=== PATIENT | male | born 1960 | race Caucasian/White ===

== ENCOUNTER 2022-07-27 06:54 | Observation (INO) ==
--- NOTE | 2022-06-21 10:28 | PAT Medication Instructions ---
Medication Instructions Date of Service June 21, 2022 Home Medications ascorbic acid (vitamin C) 500 mg tablet (Vitamin C) 500 mg PO QAM diclofenac sodium 1 tab PO BID garlic 1 dose PO QAM lisinopril 20 mg tablet 20 mg PO QAM multivitamin 1 tab PO QAM omega-3 fatty acids 1,000 mg PO QAM vitamin B complex 1 tab PO QAM ASK your surgeon for instructions diclofenac sodium 1 tab PO BID STOP taking 2 weeks before surgery (or as soon as possible if surgery is within 2 weeks) garlic 1 dose PO QAM omega-3 fatty acids 1,000 mg PO QAM DO NOT take the morning of surgery ascorbic acid (vitamin C) 500 mg tablet (Vitamin C) 500 mg PO QAM lisinopril 20 mg tablet 20 mg PO QAM multivitamin 1 tab PO QAM vitamin B complex 1 tab PO QAM Other Notes If you have any questions please call us at [phone] or [phone] or [phone] or [phone]
--- NOTE | 2022-06-23 15:11 | Anesthesiology Consultation ---
Date of Service June 23, 2022 Assessment & Plan (1) Encounter for pre-operative examination: - Outpatient joint assessment: Patient is currently scheduled for inpatient pathway. Case discussed with Dr. Rodriguez, if re-evaluated pending system levels during current pandemic/surgeon requests outpatient pathway, patient is acceptable candidate for outpatient joint program from anesthesia standpoint pending surgeon's office assessment of pt motivation/support/completion of same day joint program preop requirements. Chart Review Chart Review: Acceptable Risk for Surgery and Patient seen in Pre Admission Testing Teaching & Discussion Pre-Anesthesia Teaching/Discussion Notes: Instructed NPO after midnight before surgery, except medications with 15 cc of water. Medication instructions provided according to the PAT guidelines. History Surgery Operation Date: 07/27/22 09:35 Proposed Procedures p Left Total Knee Arthroplasty - Rashi Cifuentes MD Height/Weight Height: 6 ft Weight: 133.81 kg Allergies Allergy/AdvReac Type Severity Reaction Status Date / Time No Known Allergies Allergy Unknown Verified 06/20/22 16:03 Medications Home Medications Medication Instructions Recorded Confirmed Last Taken ascorbic acid (vitamin C) 500 mg 500 mg PO QAM 06/20/22 06/20/22 Unknown tablet (Vitamin C) diclofenac sodium 1 tab PO BID 06/20/22 06/20/22 Unknown garlic 1 dose PO QAM 06/20/22 06/20/22 Unknown lisinopril 20 mg tablet 20 mg PO QAM 06/20/22 06/20/22 Unknown multivitamin 1 tab PO QAM 06/20/22 06/20/22 Unknown omega-3 fatty acids 1,000 mg PO QAM 06/20/22 06/20/22 Unknown vitamin B complex 1 tab PO QAM 06/20/22 06/20/22 Unknown Past Medical History Medical History (Updated 06/23/22 @ 15:19 by Monique De La Cruz PA-C) GERD (gastroesophageal reflux disease) controlled, stable per pt Glaucoma Hyperlipidemia Hypertension controlled, stable per pt Hepatitis listed in [facility], pt denies, states was required to have vaccination work, reports no h/o hepatitis. Patient denies h/o stroke, seizures, heart attack, heart failure, DM, blood clots or blood transfusions. Exercise / Class Metabolic Activity II 4-5 Yardwork/Stairs/Walk up hill (denies CP or SOB with 1 FOS) Past Family History Family History Other No family history of adverse response to anesthesia Past Surgical History Surgical History History of arthroscopy of left knee History of colonoscopy History of umbilical hernia repair History of wisdom tooth extraction S/P trigger finger release Past Anesthesia History No Hx of Anesthesia Complications and No Family Hx of Anesthesia Complications History of PONV No Hx of PONV and No Hx of Motion Sickness Social History Smoking Status: Never smoker Do You Dip or Chew Tobacco: No (quit 13 years ago) Hx Alcohol Use: Yes Alcohol type: beer alcohol intake frequency: a few times a week Hx Substance Use: No substance use type: does not use Review of Systems Snoring, denies witnessed apneas. Patient denies chest pain, shortness of breath, dyspnea on exertion, fever, chills, cough, wheezing, or palpitations. Physical Exam Vital Signs Vitals BP 126/82 P 80 TEMP 98.2 SP02 95% on RA RESP 18 Physical Full cervical extension range of motion without pain TMD 3.5 finger breadths Mallampati Score 2 Dentition: intact, several caps; denies chipped or loose teeth, crowns, implants or bridges Lungs: normal respiratory effort. Clear throughout to auscultation, no adventitious breath sounds Cardiac: regular rate and rhythm, no murmurs noted Carotid arteries: negative bruit bilat Lab Results Anesthesia Preop Results Results Anesthesia Widget: WBC 8.02 K/ul (4.8-10.8) 06/23/22 Hgb 13.7 g/dl (14.0-18.0) L 06/23/22 Hct 39.9 % (40.1-51.0) L 06/23/22 Plt 233 K/uL (130-400) 06/23/22 Na 138 mmol/L (136-145) 06/23/22 K 3.7 mmol/L (3.5-5.1) 06/23/22 Cl 104 mmol/L (98-107) 06/23/22 CO2 27 mmol/L (21-32) 06/23/22 BUN 18 mg/dl (6-23) 06/23/22 Creat 0.89 mg/dl (0.6-1.4) 06/23/22 Glucose Level 106 mg/dl (70-99(Fasting)) H 06/23/22 PT 10.7 Seconds (9.0-12.0) 06/23/22 PTT 28.2 Seconds (21.0-31.0) 06/23/22 INR 1.0 (0.9-1.1) 06/23/22 HA1c 5.8 % (4.5-5.6) H 06/23/22 Urine Color Yellow 06/24/22 Urine Appearance Clear (Clear) 06/24/22 Urine pH 5.0 (4.5-7.5) 06/24/22 Urine Specific [place] 1.016 (1.000-1.030) 06/24/22 Urine Protein Negative (Negative) 06/24/22 Urine Glucose (UA) Negative (Negative) 06/24/22 Urine Ketones Negative (Negative) 06/24/22 Urine Blood Negative (Negative) 06/24/22 Urine Nitrite Negative (Negative) 06/24/22 Urine Bilirubin Negative (Negative) 06/24/22 Urine Urobilinogen Negative (Negative) 06/24/22 Urine Leukocyte Esterase Negative (Negative) 06/24/22 Blood Type A Negative 06/23/22 Antibody Screen NEGATIVE 06/23/22 Testing Electrocardiogram Date: 06/23/22 NSR, rate 71 bpm Incomplete RBBB Chest X-Ray Date: 06/23/22 No prior studies are available for comparison at the time of dictation. The cardiomediastinal silhouette is top normal for projection. The lungs and pleural spaces are clear. There is no pneumothorax. The bony thorax appears intact. IMPRESSION: No active disease in the chest. COVID-19 Risk Screen Screening Information COVID-19 Screen Date: 06/23/22 Exposure 21 Days Family/Household +COVID Last 21 Days: No Exposure 10 Days Any COVID Exposure Last 10 Days: No Symptoms Last 10 Days Experienced COVID Sx Last 10 Days: No + COVID 0-90 Days COVID + in Last 0-90 Days: No
--- NOTE | 2022-07-26 19:30 | History & Physical Report ---
Date of Service July 26, 2022 Assessment & Plan (1) Primary osteoarthritis of left knee: Plan: Treatment options discussed with the patient. He has failed conservative measures. He would like to proceed with surgical invention. Risks, benefits and alternatives to surgery including but not limited to infection, DVT, pain, stiffness, need for revision surgery, damage to blood vessels, damage to nerves, PE, , were discussed with the patient and they wish to proceed. Plan for left total knee arthroplasty scheduled for [facility] on July [address] Cifuentes. Plan for home health physical therapy. Plan on aspirin 81 mg twice daily for 1 month postop for DVT prophylaxis. Questions answered. Patient will follow up postop. History of Present Illness Chief Complaint: Left knee pain Primary Care Provider: Israel Bahena PA-C 62-year-old male with past medical history significant for hypertension, high cholesterol, BRAYDON who presents with ongoing left knee pain. Pain interfering with his daily activities. He has failed conservative measures. He like to proceed with surgical invention patient denies headaches, sweats, fevers, chills, double vision, blurred vision, cough, sore throat, dysphagia, chest pain, sob, wheezing, n/v/d/c, numbness, tingling, fatigue, urinary symptoms, mood disorders. ROS positive for left knee pain and stiffness. Allergies Allergy/AdvReac Type Severity Reaction Status Date / Time No Known Allergies Allergy Unknown Verified 06/20/22 16:03 Home Medications Medication Instructions Recorded Confirmed Type ascorbic acid (vitamin C) 500 mg 500 mg PO QAM 06/20/22 06/20/22 History tablet (Vitamin C) diclofenac sodium 1 tab PO BID 06/20/22 06/20/22 History garlic 1 dose PO QAM 06/20/22 06/20/22 History lisinopril 20 mg tablet 20 mg PO QAM 06/20/22 06/20/22 History multivitamin 1 tab PO QAM 06/20/22 06/20/22 History omega-3 fatty acids 1,000 mg PO QAM 06/20/22 06/20/22 History vitamin B complex 1 tab PO QAM 06/20/22 06/20/22 History Past Med/Surg History Medical History (Updated 07/26/22 @ 19:29 by Sachin Whipple PA-C) GERD (gastroesophageal reflux disease) controlled, stable per pt Glaucoma Hyperlipidemia Hypertension controlled, stable per pt Surgical History History of arthroscopy of left knee History of colonoscopy History of umbilical hernia repair History of wisdom tooth extraction S/P trigger finger release Family History Other No family history of adverse response to anesthesia Social History Smoking Status: Never smoker Second Hand Exposure: Yes (as a child); Hx Alcohol Use: Yes Alcohol type: beer Hx Substance Use: No Preferred Language: [place] Communication Ability: Effective Wound Care Physician Required: No Beliefs That Will Affect Care: None Current Living Situation: Spouse Feels Safe at Home: Yes Assistive Devices: Contacts and Glasses Review of Systems All systems reviewed & are unremarkable except as noted in HPI & below Physical Exam Constitutional: well developed and well nourished; no acute distress Eyes: PERRL, conjunctivae normal, anicteric sclerae ENMT: external ear and nose normal, oropharynx normal Neck: trachea midline, no thyromegaly Respiratory: normal respiratory effort, lungs clear to auscultation Cardiovascular: RRR, no murmur, no edema Musculoskeletal: Left knee: There is varus alignment, medial joint line tenderness. Range of motion 0 to 95 degrees. Stable to valgus and varus stress test. Skin: no rashes, warm and dry Neurologic: patellar DTR's 2+ bilat, sensation intact Psychiatric: A+Ox3, euthymic affect Results & Data ([facility]) Diagnostic Findings Left knee: Joint space narrowing of compartment with particular osteophyte formation and subchondral sclerosis.
[~2022-07-27 06:54] MED LIST: ACETAMINOPHEN 500 MG TAB PO SCH; CeleBREX 200 MG CAP PO SCH; FAMOTIDINE 20 MG TAB PO SCH; GABAPENTIN 600 MG DOSE PO SCH; LR 500ML BOLUS, THEN 15ML/HR IV SCH; METOCLOPRAMIDE HCL 10 MG TABLET PO SCH; ROPIVACAINE 0.5% HCL/PF 150 MG, BUPIVACAINE 0.75% MPF 20 ML, EPINEPHrine 30MG/30ML (OR ... INSTIL SCH; TRANEXAMIC ACID 1,000 MG **IV Intra-op IV SCH; TRANEXAMIC ACID 1,000 MG **IV Pre-op IV SCH; dexAMETHasone 4 MG TAB PO SCH
[2022-07-27] MEDS ORDERED: ORTHO JOINT ANESTHETIC ONE (07:02)
[2022-07-27] MEDS ORDERED: MIDAZOLAM HCL 1 MG/ML 2ML VIAL ONE (07:16)
[2022-07-27] MEDS ORDERED: LIDOCAINE 2% MPF LOCAL 5 ML VIAL INFIL ONE (07:16)
[2022-07-27] MEDS ORDERED: DEXAMETHASONE SOD INJ 4 MG/ML VIAL ONE (07:16)
[2022-07-27] MEDS ORDERED: PROPOFOL IV EMULSION 10 MG/ML 20 ML VIAL IV ONE ×4 (07:16→11:30)
[2022-07-27] MEDS ORDERED: fentaNYL citrate 100 MCG/2 ML VIAL ONE (07:17)
--- NOTE | 2022-07-27 07:26 | History & Physical Bridge Note ---
Date of Service July 27, 2022 History & Physical Bridge Note I have examined the patient, reviewed the History & Physical and in the interval since the performance of the History & Physical I have noted the following changes of clinical significance: no changes noted
[2022-07-27] MEDS ORDERED: BUPIVACAINE 0.5 % 5 MG/1 ML PF 10ML VIAL ONE (07:42)
[2022-07-27] MEDS ORDERED: BUPIVACAINE 0.25% 30 ML VIAL ONE (07:42)
[2022-07-27] MEDS ORDERED: ePHEDrine sulfate 50 MG/ML AMP IV PRN (08:15)
[2022-07-27] MEDS ORDERED: ATROPINE SULFATE 0.1 MG/ML 10ML SYR IV PRN (08:15)
[2022-07-27] MEDS ORDERED: fentaNYL citrate 100 MCG/2 ML VIAL IV PRN (08:15)
[2022-07-27] MEDS ORDERED: ONDANSETRON INJ 2 MG/ML 2 ML VIAL IV PRN ×2 (08:15→13:27)
[2022-07-27] MEDS ORDERED: PHENYLEPHRINE 100MCG/ML 5ML SYR ONE (09:33)
[2022-07-27] MEDS ORDERED: ePHEDrine sulfate 50 MG/ML AMP ONE (09:33)
--- NOTE | 2022-07-27 11:26 | Operative Report ---
Post Operative Report Pre & Post Diagnosis Operation Date: 07/27/22 09:20 Pre-Op Diagnosis: Left knee osteoarthritis, history knee arthroscopy, knee stiffness possible arthrofibrosis, obesity BMI 41.6 Post-Op Diagnosis: Left knee osteoarthritis, history of knee arthroscopy, knee stiffness probable arthrofibrosis, obesity BMI 41.6 I identified the patient and participated in the time-out.: Yes Procedure Operation Date: 07/27/22 09:20 Actual Procedures p Left Total Knee Arthroplasty(Left), increased level difficulty due to arthrofibrosis and BMI 41.6- Rashi Cifuentes MD Surgeon Rashi Cifuentes MD [employer] Yeison BRAY Estimated Blood Loss 5 Findings Consistent with Post-Op Diagnosis Specimens Bone cuts Drains 2 Hemovac Anesthesia Type MAC Spinal Regional Complications none Disposition Disposition: Recovery Room Indications 62-year-old male with chronic pain stiffness left knee prior history of knee arthroscopy and now with chronic pain stiffness failed injections therapy exercises. Radiographs demonstrate he has varus knees right knee has more joint space narrowing on extension views in his left knee has more joint space narrowing on flexion views close to being [id number] in the medial compartment he also has some patellofemoral osteophytes. He has more stiffness than one would expect with the level of arthritis that he has. Description of Procedure Patient was taken to the operating room placed supine on the operating table and anesthetized under spinal MAC regional block anesthesia. Exam under anesthesia demonstrated no effusion stiff knee with range of motion of 10 through 90 degrees only and obese upper thigh and knee area.. A pneumatic tourniquet was placed about the thigh of the left lower extremity. The left lower extremity was prepped and draped in usual sterile fashion. The leg was elevated exsanguinated with an Esmarch bandage and the pneumatic tourniquet was raised to 350 mm mercury. An anterior incision was made across the left knee. The skin was incised longitudinally subcutaneous flaps were elevated and an incision was made through the medial retinaculum extending up into the mid third of the quadriceps tendon and extended down to the medial tibial tubercle. Intra- articular findings demonstrated medial compartment OA grade 4 in the femoral condyle grade 3 and the tibial plateau varus knee thick patella some patella osteophytes. The knee was exposed by excising the infrapatellar fat pad, excising the meniscal remnants and anterior cruciate ligament. The infrapatellar fat pad has substantial scarring. Any inflamed synovial tissue was resected. The fat pad over the anterior femur was resected for placement of the component in that area. The lateral synovial bands were release. I could not expose the femur for the femoral cut due to the tightness around the patella and scar tissue there. Quad tendon was also scarred. Chose not to do a quad tendon snip due to his size. Release to quad tendon more proximal than typical extending the split in the quad tendon. I was able to supa the patella to a subperiosteal release laterally and then address patella cut first. Patella width was measured and the width was reproduced using freehand cut technique. After the patella cut was made the patella was sized for a 35 symmetrical patella and the drill holes were made for the component and the excess lateral facet of patella was beveled off to prevent any impingement. I was able to expose the femur better. The custom femoral cutting block was pinned in position. The distal femoral cutting block was applied. The distal femoral cut was made with the oscillating saw. The size 12, 4-in-1 cutting block was placed. The anterior and posterior chamfer cuts were made. The tibia was exposed. A custom tibial cutting block was positioned and drill holes were made for the cutting guide. Cutting guide was placed and the proximal cut was made with the oscillating saw. All osteophytes were resected. The lamina answering service telephone operator was used to assess ligamentous balance and the ligaments were balanced in extension and flexion. This required some medial and posterior medial release off the tibia. The tibia was reexposed and measured for a size G tibial component. This was externally rotated in line with the tibial tubercle and the fixation pins were drilled. The proximal tibia was fashioned with the drill and punch. The size 12 CR femoral trial was inserted. The trial MC inserts were used. The 10 mm mm insert gave balanced ligaments through full range of motion. The patella tracked centrally. the trials were removed. The orthomix anesthetic cocktail was injected per protocol. The knee was then copiously irrigated with pulsatile lavage saline solution. The final components were cemented with Refobacin bone cement. The final components were Mk persona Biomet 12 CR left femoral component, G left tibial component, 10 MC left tibial polyethylene, 35 symmetrical polyethylene patella. After the cement cured with the knee in full extension the Betadine soak was used per protocol. The knee joint was copiously irrigated with pulsatile lavage saline solution . 2 drains were brought out laterally and connected to a Hemovac. The quadriceps tendon and medial retinaculum were closed with interrupted [id number] #1 Vicryl sutures. The knee was taken through a full range of motion and repair was secure. Range of motion was 0 through 100 degrees. The subcutaneous tissues were closed with 2-0 Vicryl sutures and skin was closed with mansi. Yuliya and Acticoat superficial wound VAC was applied and the patient tolerated the procedure well. Yeison BRAY my physician quality assistant, assisted in soft tissue retraction, instrument management ,leg positioning, the closure and will participate in the postoperative care of the patient. There was increased level difficulty due to his obesity and due to the arthrofibrosis and knee stiffness which added 30 minutes surgical time to the procedure. I attest to the content of the Intraoperative Record and any orders documented therein. Any exceptions are noted below.
--- NOTE | 2022-07-27 12:34 | XRay Report ---
LEFT KNEE 2 VIEWS History: Left total knee arthroplasty. Degenerative arthritis. Postop. FINDINGS: The patient is status post a left total knee arthroplasty. The hardware is intact. No fract ure or dislocation. Skin mansi and surgical drains are in place. IMPRESSION: Left total knee arthroplasty. No evidence for hardware complication. ACT 112: Negative or not required by law. Electronically signed by: Antonio Valencia M.D. 07/27/2022 12:33 PM
[2022-07-27] MEDS ORDERED: NALOXONE HCL 0.4 MG/1 ML VIAL/CARP IV PRN (13:27)
[2022-07-27] MEDS ORDERED: HYDROmorphone INJ 0.5 MG/0.5 ML SYR IV PRN (13:27)
[2022-07-27] MEDS ORDERED: MAGNESIUM HYDROXIDE SUSP 30 ML UDC PO PRN (13:27)
[2022-07-27] MEDS ORDERED: bisacodyL 10 MG SUPP PR PRN (13:27)
[2022-07-27] MEDS ORDERED: METOCLOPRAMIDE HCL INJ 5 MG/ML 2 ML VIAL IV PRN (13:27)
--- NOTE | 2022-07-27 13:42 | Anesthesiology Progress Note ---
Date of Service July 27, 2022 Anesthesia Post Procedure Vital Signs Vital Signs: Temp Pulse Pulse Resp BP BP Pulse Ox 07/27/22 13:27 36.6 C 93 H 16 136/81 95 07/27/22 13:00 93 H 21 133/82 95 07/27/22 12:45 91 H 16 133/78 94 07/27/22 12:35 36.5 C 91 H 14 131/85 93 07/27/22 12:25 95 H 15 125/85 95 07/27/22 12:15 86 15 116/87 96 07/27/22 12:09 36.2 C L 100 H 20 128/76 98 07/27/22 07:16 36.7 C 88 20 162/93 H 96 O2 Del Method O2 Flow Rate 07/27/22 13:27 Room Air 07/27/22 13:00 Nasal Cannula 2 07/27/22 12:45 Nasal Cannula 2 07/27/22 12:35 Room Air 07/27/22 12:25 Room Air 07/27/22 12:15 Oxymask 6 07/27/22 12:09 Oxymask 6 07/27/22 07:16 Room Air Pain Intensity Left Knee: Pain Intensity: 4 Transfer of Care Handoff Completed per policy Notes Mental Status: alert / awake / arousable and participated in evaluation Nausea / Vomiting: adequately controlled Pain: adequately controlled Airway Patency, RR, SpO2: stable & adequate BP & HR: stable & adequate Hydration State: stable & adequate Neuraxial Anesthesia: was administered and sensory block is resolving Anesthetic Complications: no major complications apparent and Pt Satisfied with anesthetic care
[2022-07-27] MEDS: SODIUM CHLORIDE 0.9% 1000ML 1,000 ML IV SCH (13:48)
[2022-07-27] MEDS: ACETAMINOPHEN 500 MG TAB PO SCH ×2 (13:50→21:52)
[2022-07-27] MEDS: oxyCODONE HCL IR 5 MG TAB (IMMEDIATE RELEASE) PO PRN ×2 (13:50→20:41)
--- NOTE | 2022-07-27 14:33 | Hospitalist Consultation ---
Date of Consultation July 27, 2022 Assessment & Plan (1) Primary osteoarthritis of left knee: (2) Status post total left knee replacement: - Pain management, bowel regimen and DVT ppx per the primary team - PT/OT consults, pt is planning on outpatient therapy at [facility] [place] - Follow am CBC to monitor for acute blood loss, hgb 13.7 on 06/23/22 (3) Morbid obesity with BMI of 40.0-44.9, adult: - Diet and exercise to be encouraged throughout the course of hospital stay - Discussion was held at bedside regarding weight loss and nutrition, activity level, etc. Pt and his expressed understanding. His goal is to lose 40 lbs this year. (4) Hypertension: -May continue lisinopril/hctz 20/25 mg tabs mg daily - will order one dose now with elevated BP and pain is well controlled. (5) Hyperlipidemia: Continue omega-3 fish oil, multivitamin, vitamin C DVT PPx: - teds, scds CODE: Full code Dispo: From home, likely to remain in the hospital x 1-2 days Supervising Physician Co-Signing Physician Notes I have seen and examined the patient and have discussed the case with the provider above. I agree with the assessment and plan as stated. 62 yo M s/p left total knee arthroplasty doing well post operatively. He denies any uncontrolled pain but is sore in his upper left thigh. He denies any chest pain, shortness of breath or other issues. We reviewed his medications. Labs were reviewed. Physical exam is unremarkable aside from surgical knee with dressing in place and ice on top. Thank you for the consultation. Continue m edical management as listed above. DO Wolf History of Present Illness Reason for Consultation: Medical management Requesting Physician: Dr. Cifuentes Attending Physician: Rashi Cifuentes MD History of Present Illness This is a 62-year-old male with PMHx of morbid obesity with a BMI of 41.6, HTN, HLD, remote hx of chewing tobacco use 2 cans daily, from age [age], who pre sented today for elective left total knee arthroplasty by Dr. Betts. Patient reports that he is doing quite well, has only minimal pain after having surgery. He has full sensation to light touch back into his left foot. Patient tolerated lunch without any difficulty, denies nausea, last bowel movement was earlier this morning. He notes normally taking his lisinopril/HCTZ around 5 AM, last dose was on 07/26. Historically the patient has undergone significant weight loss with diet and exercise alone, losing over 100 pounds about 10 years ago. He has progressively gained approximately 10 pounds per month over that course of time. Discussion was held regarding diet and exercise and pt is very motivated to loose weight. He intends to have the opposite knee replaced in the the near future. Allergies Allergy/AdvReac Type Severity Reaction Status Date / Time No Known Allergies Allergy Unknown Verified 07/27/22 07:13 Home Medications Medication Instructions Recorded Confirmed Type ascorbic acid (vitamin C) 500 mg 1,000 mg PO QAM 06/20/22 07/27/22 History tablet (Vitamin C) multivitamin 1 tab PO QAM 06/20/22 07/27/22 History vitamin B complex 1 tab PO QAM 06/20/22 07/27/22 History diclofenac sodium 75 mg 75 mg PO BID 07/27/22 07/27/22 History tablet,delayed release lisinopril 20 1 tab PO QAM 07/27/22 07/27/22 History mg-hydrochlorothiazide 25 mg tablet omega 1-cyp-ets-fish oil 1,000 mg 1 cap PO DAILY 07/27/22 07/27/22 History (120 mg-180 mg) capsule (Fish Oil) Patient History Medical History GERD (gastroesophageal reflux disease) controlled, stable per pt Glaucoma Hyperlipidemia Hypertension controlled, stable per pt Surgical History History of arthroscopy of left knee History of colonoscopy History of umbilical hernia repair History of wisdom tooth extraction S/P trigger finger release Family History Other No family history of adverse response to anesthesia Social History Smoking Status: Never smoker Tobacco Type: Smokeless Tobacco (Dip or Chew) Second Hand Exposure: Yes (as a child); Do You Dip or Chew Tobacco: No (quit 13 years ago); Hx Alcohol Use: Yes Alcohol type: beer Alcohol Intake Frequency Comment: 3 beers daily Hx Substance Use: No Preferred Language: Occitan Communication Ability: Effective Gathering Machine Setter Required: No Beliefs That Will Affect Care: None Current Living Situation: Spouse Feels Safe at Home: Yes Safety Concerns: Feels Safe At This Time Assistive Devices: Contacts and Glasses Review of Systems Review of Systems: Constitutional: No fever, sweats or chills Eyes: No diplopia, no worsening or blurred vision ENT: normal hearing, no trouble swallowing Respiratory: No cough, sputum, dyspnea at rest or on exertion Cardiovascular: No chest pain, tightness or palpitations Abdomen: No pain, nausea, vomiting, diarrhea or constipation Musculoskeletal: No joint pain, calf pain, swelling Neurologic: No weakness, numbness/tingling, or balance problems Psychiatric: No anxiety or depression Skin: No rash or itch Physical Exam Physical Exam: General: awake, alert, no apparent distress, obese with BMI of 41.6 Head: Normocephalic, atraumatic ENT: PERRL, EOMI, no pharyngeal exudate, mucous membranes moist Chest: Clear to auscultation, on room air, no adventitious breath sounds Cardiac: Regular rate and rhythm, no murmur, no JVD, normal peripheral pulses, good capillary refill Abdominal: NABS x 4 quadrants, soft, nondistended, nontender to palpation, no rebound or guarding Extremities: Left knee with ASHLEY, icepack in place, NADEEM drain, otherwise normal inspection, no peripheral edema or erythema, calfs nontender to palpation Psych: Normal mood and affect Neuro: AAO x 3, strength intact bilaterally and rated 5/5, no motor deficits, speech is clear, no peripheral sensory deficits Results & Data Results & Data ([facility]) Vital Signs (Past 12 Hours) Vital Signs Temp Pulse Pulse Resp BP BP Pulse Ox 07/27/22 14:25 36.7 C 107 H 16 157/77 H 94 07/27/22 13:51 100 H 16 147/84 H 94 07/27/22 13:27 36.6 C 93 H 16 136/81 95 07/27/22 13:00 93 H 21 133/82 95 07/27/22 12:45 91 H 16 133/78 94 07/27/22 12:35 36.5 C 91 H 14 131/85 93 07/27/22 12:25 95 H 15 125/85 95 07/27/22 12:15 86 15 116/87 96 07/27/22 12:09 36.2 C L 100 H 20 128/76 98 07/27/22 07:16 36.7 C 88 20 162/93 H 96 O2 Del Method O2 Flow Rate 07/27/22 14:25 Room Air 07/27/22 13:51 Room Air 07/27/22 13:27 Room Air 07/27/22 13:00 Nasal Cannula 2 07/27/22 12:45 Nasal Cannula 2 07/27/22 12:35 Room Air 07/27/22 12:25 Room Air 07/27/22 12:15 Oxymask 6 07/27/22 12:09 Oxymask 6 07/27/22 07:16 Room Air Diagnostic Findings Knee X-Ray 07/27/22 12:09 LEFT KNEE 2 VIEWS History: Left total knee arthroplasty. Degenerative arthritis. Postop. FINDINGS: The patient is status post a left total knee arthroplasty. The hardware is intact. No fracture or dislocation. Skin mansi and surgical drains are in place. IMPRESSION: Left total knee arthroplasty. No evidence for hardware complication. ACT 112: Negative or not required by law. Electronically signed by: Antonio Valencia M.D. 07/27/2022 12:33 PM Medications Administered Current Inpatient Medications Acetaminophen (Acetaminophen 500 Mg Tab) 1,000 mg PO Q8 [facility] Stop: 08/26/22 13:59 Last Admin: 07/27/22 21:52 Dose: 1,000 mg Ascorbic Acid (Ascorbic Acid 500 Mg Tab) 500 mg PO QAM [facility] Stop: 08/27/22 08:59 Aspirin (Aspirin 81 Mg Ectab) 81 mg PO BID [facility] Stop: 08/26/22 20:59 Last Admin: 07/27/22 20:42 Dose: 81 mg Bisacodyl (Bisacodyl 10 Mg Supp) 10 mg KS DAILY PRN PRN Reason: Constipation Stop: 08/26/22 13:26 Celecoxib (Celebrex 200 Mg Cap) 200 mg PO BID [facility] Stop: 08/26/22 20:59 Last Admin: 07/27/22 20:42 Dose: 200 mg Docusate Sodium (Docusate Sodium 100 Mg Cap) 100 mg PO BID [facility] Stop: 08/26/22 20:59 Last Admin: 07/27/22 20:41 Dose: 100 mg Fish Oil ([place]-3 (Purified Fish Oil) 1 Gm Cap) 1 gm PO DAILY [facility] Stop: 08/27/22 08:59 Lisinopril/HCTZ (Lisinopril/Hctz 20/25mg 1 Tab) 1 tab PO QAM [facility] Stop: 08/27/22 08:59 Hydromorphone HCl (Hydromorphone Inj 0.5 Mg/0.5 Ml Syr) 0.5 mg IV Q4H PRN PRN Reason: Pain or Pre PT Stop: 08/10/22 13:26 Sodium Chloride (Nss 1000ml) 1,000 mls @ 100 mls/hr IV .Q10H [facility] Stop: 07/28/22 06:00 Last Admin: 07/27/22 13:48 Dose: 100 mls/hr Cefazolin Sodium (Ancef 2000mg) 2,000 mg in 15 mls @ 3.75 mls/min IV Q8H [facility]; Protocol Stop: 07/28/22 01:03 Last Admin: 07/27/22 17:38 Dose: 3.75 mls/min Magnesium Hydroxide (Magnesium Hydroxide Susp 30 Ml Udc) 30 ml PO Q6H PRN PRN Reason: Constipation Stop: 08/26/22 13:26 Metoclopramide HCl (Metoclopramide Hcl Inj 5 Mg/Ml 2 Ml Vial) 10 mg IV Q6H PRN PRN Reason: Nausea And Vomiting Stop: 08/26/22 13:26 Multivitamins (Multivitamin Tab) 1 tab PO [facility] Stop: 08/27/22 08:59 Naloxone HCl (Naloxone Hcl 0.4 Mg/1 Ml Vial/Carp) 0.1 mg IV Q5M PRN PRN Reason: Oversedation/Resp Depression Stop: 08/26/22 13:26 Ondansetron HCl (Ondansetron Inj 2 Mg/Ml 2 Ml Vial) 4 mg IV Q6H PRN PRN Reason: Nausea And Vomiting Stop: 08/26/22 13:26 Oxycodone HCl (Oxycodone Hcl Ir 5 Mg Tab (Immediate Release)) 5 - 10 mg PO Q4H PRN PRN Reason: Pain or Pre PT Stop: 08/10/22 13:26 Last Admin: 07/27/22 20:41 Dose: 5 mg Sennosides (Senna 8.6 Mg Tab) 17.2 mg PO [facility] Stop: 08/26/22 20:59 Last Admin: 07/27/22 20:42 Dose: 17.2 mg Vitamin B Complex (Vitamin B Complex Tab) 1 tab PO [facility] Stop: 08/27/22 08:59
[2022-07-27] MEDS ORDERED: LISINOPRIL/HCTZ 20/25MG 1 TAB PO ONE (15:15)
[2022-07-27] MEDS: ceFAZolin 2000MG 2,000 MG/15 ML SYR IV SCH (17:38)
[2022-07-27] MEDS: DOCUSATE SODIUM 100 MG CAP PO SCH (20:41)
[2022-07-27] MEDS: CeleBREX 200 MG CAP PO SCH (20:42)
[2022-07-27] MEDS: ASPIRIN 81 MG ECTAB PO SCH (20:42)
[2022-07-27] MEDS ORDERED: SENNA 8.6 MG TAB PO SCH (21:00)
[2022-07-28] MEDS: SODIUM CHLORIDE 0.9% 1000ML 1,000 ML IV SCH (00:41)
[2022-07-28] MEDS: ceFAZolin 2000MG 2,000 MG/15 ML SYR IV SCH (00:43)
[2022-07-28] MEDS: ACETAMINOPHEN 500 MG TAB PO SCH (06:01)
[2022-07-28 06:25] LABS: Hematocrit (blood only) 34.2 % (40.1-51.0); Hemoglobin 11.7 g/dl (14.0-18.0); Mean Corpuscular Hgb Conc 34.2 g/dL (32.0-36.0); Mean Corpuscular Volume 87.7 fL (80.0-100.0); Mean Platelet Volume 11.4 fL (9.4-12.4); Platelet Count 264 K/uL (130-400); RDW Coefficient of Variation 13.1 % (11.5-14.5); RDW Standard Deviation 41.7 fL (36.4-46.3); White Blood Count 16.42 K/ul (4.8-10.8)
[2022-07-28] MEDS: ASPIRIN 81 MG ECTAB PO SCH (07:55)
[2022-07-28] MEDS: DOCUSATE SODIUM 100 MG CAP PO SCH (07:55)
[2022-07-28] MEDS: CeleBREX 200 MG CAP PO SCH (07:56)
--- NOTE | 2022-07-28 08:11 | Orthopedic Progress Note ---
Date of Service July 28, 2022 Assessment & Plan (1) Primary osteoarthritis of left knee: Plan: Postop day 1 status post left total knee arthroplasty PT/OT protocols. Weightbearing as tolerated. DVT prophylaxis-aspirin p.o. twice daily, SCDs, SHEYLA menezes. Pain management as written. DC planning-patient is planning for outpatient PT upon discharge. Admission and Anticipated Discharge Date Admission Date: July 27, 2022 Subjective Postop day 1 Patient sitting up in bed awake and alert. Patient states he is having little bit of heartburn this morning. Takes Pepcid at home when needed. Pain is controlled. Denies shortness of breath, chest pain, lightheadedness. Physical Exam 2 Physical Exam: Dressings are clean, dry, and intact. Calves are soft and nontender. Neurovascular is intact. Toes are mobile. He has good dorsiflexion and plantarflexion of the left foot. Hemovac drainage was 150 mL from the previous shift. Results & Data ([facility]) Vital Signs (Past 12 Hours) Vital Signs Temp Pulse Pulse Resp BP Pulse Ox O2 Del Method 07/28/22 07:28 36.6 C 75 20 123/73 95 Room Air 07/28/22 03:35 36.5 C 88 18 107/70 95 Room Air 07/27/22 23:46 36.7 C 82 20 114/67 95 Room Air
[2022-07-28 08:36] LABS: BUN Creatinine Ratio 27.6 (10-20); Calcium 8.8 mg/dl (8.5-10.1); Creatinine Clr Calc Pharmacy 149.4 ml/min; Est GFR (African American) 114.9 ml/min; Est GFR (Non-African American) 99.2 ml/min; Potassium 4.4 mmol/L (3.5-5.1)
[2022-07-28] MEDS ORDERED: VITAMIN B COMPLEX TAB PO SCH (09:00)
[2022-07-28] MEDS ORDERED: MULTIVITAMIN TAB PO SCH (09:00)
[2022-07-28] MEDS ORDERED: ASCORBIC ACID 500 MG TAB PO SCH (09:00)
[2022-07-28] MEDS ORDERED: LISINOPRIL/HCTZ 20/25MG 1 TAB PO SCH (09:00)
[2022-07-28] MEDS ORDERED: NON-FORMULARY MEDICATION (Multivitamin Tablet) PO SCH (09:00)
[2022-07-28] MEDS ORDERED: lisinopril 20 MG TAB PO SCH (09:00)
[2022-07-28] MEDS ORDERED: OMEGA-3 (PURIFIED FISH OIL) 1 GM CAP PO SCH (09:00)
--- NOTE | 2022-07-28 10:47 | Discharge Summary ---
Date of Service July 28, 2022 Admission HPI Per Admitting Provider 62-year-old male with past medical history significant for hypertension, high cholesterol, BRAYDON who presents with ongoing left knee pain. Pain interfering with his daily activities. He has failed conservative measures. He like to proceed with surgical invention patient denies headaches, sweats, fevers, chills, double vision, blurred vision, cough, sore throat, dysphagia, chest pain, sob, wheezing, n/v/d/c, numbness, tingling, fatigue, urinary symptoms, mood disorders. ROS positive for left knee pain and stiffness. Admission Exam Per Admitting Provider Constitutional: well developed and well nourished; no acute distress Eyes: PERRL, conjunctivae normal, anicteric sclerae ENMT: external ear and nose normal, oropharynx normal Neck: trachea midline, no thyromegaly Respiratory: normal respiratory effort, lungs clear to auscultation Cardiovascular: RRR, no murmur, no edema Musculoskeletal: Left knee: There is varus alignment, medial joint line tenderness. Range of motion 0 to 95 degrees. Stable to valgus and varus stress test. Skin: no rashes, warm and dry Neurologic: patellar DTR's 2+ bilat, sensation intact Psychiatric: A+Ox3, euthymic affect Principal Diagnosis Left knee osteoarthritis Discharge Exam Dressings are clean, dry, and intact. Calves are soft and nontender. Neurovascular is intact. Toes are mobile. He has good dorsiflexion and plantarflexion of the left foot. Hemovac drainage was 150 mL from the previous shift. Constitutional well developed and well nourished; no acute distress Discharge Data Allergies Allergy/AdvReac Type Severity Reaction Status Date / Time No Known Allergies Allergy Unknown Verified 07/27/22 07:13 Consultations 07/22/22 16:51 Consult Hospitalist Routine Procedures Performed Operation Date: 07/27/22 09:20 Actual Procedures p Left Total Knee Arthroplasty(Left) - Rashi Cifuentes MD Ordered Studies 07/27/22 05:00 US - OR guided needle placemen Routine Hospital Course (1) Primary osteoarthritis of left knee: Postop day 1 status post left total knee arthroplasty PT/OT protocols. Weightbearing as tolerated. DVT prophylaxis-aspirin p.o. twice daily, SCDs, SHEYLA hose. Pain management as written. DC planning-patient is planning for outpatient PT upon discharge. Lab Results 07/27/22 07/28/22 07/28/22 Range/Units 07:13 05:57 05:57 WBC 16.42 H (4.8-10.8) K/ul RBC 3.90 L (4.63-6.08) M/uL Hgb 11.7 L (14.0-18.0) g/dl Hct 34.2 L (40.1-51.0) % MCV 87.7 (80.0-100.0) fL MCH 30.0 (25.0-34.0) pg MCHC 34.2 (32.0-36.0) g/dL RDW Std Deviation 41.7 (36.4-46.3) fL RDW Coeff of Sarina 13.1 (11.5-14.5) % Plt Count 264 (130-400) K/uL MPV 11.4 (9.4-12.4) fL Sodium 137 (136-145) mmol/L Potassium 4.4 (3.5-5.1) mmol/L Chloride 105 (98-107) mmol/L Carbon Dioxide 23 (21-32) mmol/L Anion Gap 9 (3-11) BUN 21 (6-23) mg/dl Creatinine 0.76 (0.6-1.4) mg/dl Est Cr Clr Drug Dosing 149.4 ml/min Est GFR ( Amer) 114.9 ml/min Est GFR (Non-Af Amer) 99.2 ml/min BUN/Creatinine Ratio 27.6 H (10-20) Glucose 134 H (70-99(Fasting)) mg/dl Calcium 8.8 (8.5-10.1) mg/dl SARS-CoV-2, RNA, NAAT NEGATIVE (NEGATIVE) Total Time Total Time Spent Total Time Spent (In Minutes): 20 Discharge Plan Discharge Items Patient Disposition: Home - Self-Care Reason For Visit: Left Knee Osteoarthritis Discharge Diagnosis: Left knee osteoarthritis Activity: Per Instructions section Weightbearing: Left weightbearing Weightbearing Comment: As tolerated with walker Non-emergency contact: Surgeon Call non-emergency contact if: you have any medication questions, your pain is not controlled, your temperature is above 101.5, your wound has increased redness and your wound has increased drainage Follow-up/Referrals: Rashi Cifuentes MD [Surgeon] - (Follow-up with Dr. Cifuentes or his PA in 2 weeks from the day of your surgery for your first postoperative visit.) Israel Bahena PA-C [Primary Care Provider] - Diet: Regular Addtl Attending Provider Instructions: ACTIVITY RECOMMENDATIONS: SELF CARE INSTRUCTIONS AFTER TOTAL KNEE REPLACEMENT A. You may need to continue a physical therapy program after discharge from the hospital. There are several options available to you. Your doctor will assist you in selecting the best one for you. 1. An out-patient facility 2 to 3 times a week for therapy or home therapy. 2. Continue working on all exercises taught to you in the hospital. Your goals should be to increase bending of your knee to 90 degrees and beyond and to fully straighten your knee. B. You may progress at your own pace from walking with a walker or crutches to a cane; then to no assistive devices. C. Make walking a part of your daily routine. Be up as much as comfortable with rest periods throughout the day. Rest with leg elevation is very important. Use the ice wrap frequently for the first 3-4 weeks. D. There are no restrictions on activities. You may ride in a car, shop, participate in change house attendant and all social activities. E. Wear the long elastic stockings (SHEYLA hose) 20 hours a day for 2 weeks after surgery. They can be removed several times a day for laundering and for a bath. F. You may shower, no tub baths until cleared by your doctor. SPECIAL CARE INSTRUCTIONS: VERY IMPORTANT TO READ AND REVIEW A. There are a few signs you need to watch for after you are home. Call [facility] if you notice any of the followin. Increased severe knee pain. Some pain is expected especially when you exercise. 2. Increased swelling in your leg or knee; pain or swelling of the calf muscle in either lower leg. 3. Any fluid drainage from the incision. 4. Shortness of breath or chest pain. B. Please call [facility] at if you have any concerns or questions about your operation or recovery. The doctor or his nurse will return your call promptly. C. You must take antibiotics before dental work, bladder, bowel or other surgery. Your doctor will provide you with a permanent care to carry describing this precaution. IMPORTANT: * REMEMBER TO TAKE ASPIRIN, 81 MG, TWICE DAILY FOR 4 WEEKS UNLESS OTHERWISE DIRECTED. THIS IS YOUR BLOOD THINNER.. * CALL IF INCREASED PAIN, REDNESS, DRAINAGE OR FEVER GREATER THAT 101. * WEAR SHEYLA HOSE 20 HOURS PER DAY FOR 2 WEEKS. * LEBRON Dressing - This is a large suction dressing covering your incision. This will help pull any excess drainage from the wound and allow your incision to heal properly. You may shower with this if you can keep the unit outside of the shower. If any bleeding or leakage is noted please call your doctor's office. This will remain on your incision for 7 days and then should be removed. This can be done yourself or by the home nursing staff if applicable. The entire unit is disposable once removed. Once removed, keep incision clean and dry. If redness or drainage is noted, please call your surgeon. . FOLLOW UP VISIT: If appointment is not already scheduled: Please call [facility] to make a follow-up appointment for 2 weeks after your surgery at . Stand-Alone Forms: [facility] [place], Pain - Opioid Pain Management, Smoking Cessation Medications and DC Order Prescriptions: New acetaminophen [Tylenol Extra Strength] 500 mg Tablet 1,000 mg PO Q8 14 Days Qty: 84 0RF celecoxib [Celebrex] 200 mg Capsule 200 mg PO BID 14 Days Qty: 28 0RF aspirin 81 mg Tablet,Delayed Release (Dr/Ec) 81 mg PO BID 30 Days Qty: 60 0RF polyethylene glycol 3350 [Miralax] 17 gram powder in packet 17 g PO DAILY PRN (Reason: constipation) Qty: 5 0RF oxycodone 5 mg tablet 5 mg PO Q4H MDD 6 tabs PRN (Reason: pain) Qty: 18 0RF Continued multivitamin Tablet 1 tab PO QAM ascorbic acid (vitamin C) [Vitamin C] 500 mg Tablet 1,000 mg PO QAM vitamin B complex Tablet 1 tab PO QAM lisinopril-hydrochlorothiazide 20-25 mg tablet 1 tab PO QAM Discontinued diclofenac sodium 75 mg tablet,delayed release (DR/EC) 75 mg PO BID omega 3-skf-cmt-fish oil [Fish Oil] 1,000 mg (120 mg-180 mg) Capsule 1 cap PO DAILY Discharge Orders: Discharge Order (Routine); Ordered 07/28/22 Ordered By: Russell Sandoval Admission Data Admit Date/Time: 07/27/22 12:09 Attending Provider: Rashi Cifuentes Admit Provider: Rashi Cifuentes Primary Care Provider: Israel Bahena Other Providers: Dieter Field Other Interventions: Discharge Summary Assessment (RN) Last Done: 07/28/22 09:46
[2022-07-28] MEDS: oxyCODONE HCL IR 5 MG TAB (IMMEDIATE RELEASE) PO PRN (11:26)
--- NOTE | 2022-07-28 13:28 | Hospitalist Progress Note ---
Date of Service July 28, 2022 Assessment & Plan (1) Primary osteoarthritis of left knee: (2) Status post total left knee replacement: Plan: - Pain management, bowel regimen and DVT ppx per the primary team - PT/OT consults, pt is planning on outpatient therapy at [facility] in [place] - Follow am CBC to monitor for acute blood loss, hgb 13.7 on 06/23/22, f/u Hb minimally down likely dilutional on top of post op blood loss. - Pt w/ sob, chest pain, dizziness. (3) Morbid obesity with BMI of 40.0-44.9, adult: Plan: - Diet and exercise to be encouraged throughout the course of hospital stay - Discussion was held by prior attending at bedside regarding weight loss and nutrition, activity level, etc. Pt and his expressed understanding. His goal is to lose 40 lbs this year. (4) Hypertension: Plan: -May continue lisinopril/hctz 20/25 mg tabs mg daily -BP fairly controlled. (5) Hyperlipidemia: Plan: Continue omega-3 fish oil, multivitamin, vitamin C DVT PPx: - teds, scds CODE: Full code Dispo: per primary. Admission and Anticipated Discharge Date Admission Date: July 27, 2022 Subjective Patient seen and examined at bedside as a follow-up of medical management for status post total left knee replacement for primary osteoarthritis of left knee. Patient was sitting up in chair, on room air, NAD, reports no new acute event overnight, reports pain under control, has been working with PT/OT, reports eating okay, has not moved bowel, is moving gas, denies other review of symptoms. Physical Exam Physical Exam: GENERAL: Alert and oriented x3. NAD, on RA. Obese Class III HEENT: No pallor, no icterus. Pupils equal, round and reactive to light. Oral mucosa moist. NECK: No JVD, no neck masses. HEART: S1 and S2 heard. Regular rate and rhythm. No murmur, no gallop. RESPIRATORY SYSTEM: Normal AP diameter. No accessory muscle use. No wheezing, no crackles. ABDOMEN: Soft, bowel sounds present, nontender, no distention. CENTRAL NERVOUS SYSTEM: No facial droop. Speech is clear. Obeys simple commands. Moves extremities. EXTREMITIES: No edema, no erythema seen. Lt knee w/ dressing c/d/i. Distal NV status wnl. Results & Data Results & Data ([facility]) Vital Signs (Past 12 Hours) Vital Signs Temp Pulse Pulse Resp BP Pulse Ox O2 Del Method 07/28/22 09:46 36.6 C 75 88 20 123/73 95 07/28/22 07:28 36.6 C 75 20 123/73 95 Room Air 07/28/22 03:35 36.5 C 88 18 107/70 95 Room Air
== END 2022-07-28 12:45 | disposition home or self-care (01) ==
LOC: 3E 06:54 → ASU 06:54

== ENCOUNTER 2023-07-20 08:38 | Observation (INO) ==
--- NOTE | 2023-06-19 11:40 | PAT Medication Instructions ---
Medication Instructions Date of Service June 19, 2023 Home Medications Medication Instructions Recorded cefadroxil 500 mg capsule 500 mg PO BID #14 caps 07/28/22 oxycodone 5 mg tablet 5 mg PO Q4H PRN pain #18 tabs 07/28/22 polyethylene glycol 3350 17 gram 17 g PO DAILY PRN constipation #5 07/28/22 oral powder packet (Miralax) ea ascorbic acid (vitamin C) 500 mg tablet (Vitamin C) 1,000 mg PO QAM multivitamin 1 tab PO QAM vitamin B complex 1 tab PO QAM lisinopril 20 mg-hydrochlorothiazide 25 mg tablet 1 tab PO QAM cefadroxil 500 mg capsule 500 mg PO BID oxycodone 5 mg tablet 5 mg PO Q4H PRN polyethylene glycol 3350 17 gram oral powder packet (Miralax) 17 g PO DAILY PRN bupropion HCl 75 mg tablet 75 mg PO BID meloxicam 15 mg tablet 15 mg PO DAILY PRN naltrexone 50 mg tablet 25 mg PO QAM ASK your surgeon for instructions meloxicam 15 mg tablet 15 mg PO DAILY PRN DO NOT take the morning of surgery ascorbic acid (vitamin C) 500 mg tablet (Vitamin C) 1,000 mg PO QAM multivitamin 1 tab PO QAM vitamin B complex 1 tab PO QAM lisinopril 20 mg-hydrochlorothiazide 25 mg tablet 1 tab PO QAM polyethylene glycol 3350 17 gram oral powder packet (Miralax) 17 g PO DAILY PRN Take morning of surgery With a small sip of water, OTHERWISE NOTHING TO EAT OR DRINK AFTER MIDNIGHT: cefadroxil 500 mg capsule 500 mg PO BID oxycodone 5 mg tablet 5 mg PO Q4H PRN(if needed) bupropion HCl 75 mg tablet 75 mg PO BID naltrexone 50 mg tablet 25 mg PO QAM Take evening before surgery cefadroxil 500 mg capsule 500 mg PO BID oxycodone 5 mg tablet 5 mg PO Q4H PRN(if needed) bupropion HCl 75 mg tablet 75 mg PO BID Other Notes If you have any questions please call us at [phone] or [phone] or [phone] or [phone]
--- NOTE | 2023-06-20 15:04 | Anesthesiology Consultation ---
Date of Service June 20, 2023 Assessment & Plan (1) Encounter for pre-operative examination: - Infectious disease screening: Per assessment on 06/20/23: No known infectious disease contacts or current infectious disease symptoms. No noted Covid positive test result in past 90 days. - Outpatient joint pathway: Per OR booking comments, plan for outpatient joint program. Patient seen at [facility] 06/20/23. Patient is an acceptable candidate to pr oceed as planned outpatient joint pathway pending perioperative course. Surgeon's office arranging post-op home management. - S/P Left TKA (07/27/22): SAB L3-L4, 1 attempt + PNB at [facility] - Pending: * Patient unable to void at [facility] visit. He will be taking sample to [facility] in near future per PAT tech. Awaiting preop UA ([facility]). * Awaiting surgeon-ordered PCP preop evaluation ([facility] David, appt 07/01). Chart Review Chart Review: Patient seen in Pre Admission Testing Teaching & Discussion Pre-Anesthesia Teaching/Discussion Notes: Instructed NPO after midnight before surgery,except medications with 15 cc of water. Medication instructions provided according to the [facility] guidelines. History Surgery Operation Date: 07/20/23 11:20 Proposed Procedures p OP: Right Total Hip Replacement - Lex Haynes MD Height/Weight Height: 6 ft Weight: 130.1 kg Allergies Allergy/AdvReac Type Severity Reaction Status Date / Time No Known Allergies Allergy Unknown Verified 06/19/23 09:36 Medications Home Medications Medication Instructions Recorded Confirmed Last Taken ascorbic acid (vitamin C) 500 mg 1,000 mg PO QAM 06/20/22 06/19/23 07/26/22 04:00 tablet (Vitamin C) multivitamin 1 tab PO QAM 06/20/22 06/19/23 07/26/22 04:00 vitamin B complex 1 tab PO QAM 06/20/22 06/19/23 07/13/22 lisinopril 20 1 tab PO QAM 07/27/22 06/19/23 07/26/22 mg-hydrochlorothiazide 25 mg tablet cefadroxil 500 mg capsule 500 mg PO BID #14 caps 07/28/22 06/19/23 Unknown polyethylene glycol 3350 17 gram 17 g PO DAILY PRN constipation #5 07/28/22 06/19/23 Unknown oral powder packet (Miralax) ea meloxicam 15 mg tablet 15 mg PO DAILY PRN Pain 06/19/23 06/19/23 Unknown naltrexone 50 mg tablet 25 mg PO QAM 06/19/23 06/19/23 Unknown Past Medical History Medical History ALLISON (nonalcoholic steatohepatitis) Obese Prescribed naltrexone/bupropion 03/2023 by PCP for appetite suppression > Per patient at [facility] 06/20/23, no longer taking bupropion. Will be seeing PCP for pr eop appt 07/01/23. Snores No formal sleep study, + witnessed apneic events GERD (gastroesophageal reflux disease) controlled, stable per pt Hypertension controlled, stable per pt Hyperlipidemia Glaucoma no meds Past Family History Family History Other No family history of adverse response to anesthesia Past Surgical History Surgical History History of total knee replacement Left TKA (07/27/22): SAB L3-L4, 1 attempt + PNB at [facility] S/P trigger finger release History of wisdom tooth extraction History of arthroscopy of left knee History of umbilical hernia repair History of colonoscopy Past Anesthesia History No Hx of Anesthesia Complications and No Family Hx of Anesthesia Complications History of PONV No Hx of PONV and No Hx of Motion Sickness Social History Smoking Status: Never smoker Do You Dip or Chew Tobacco: No (Quit, hx of 15 yrs ago) Hx Alcohol Use: Yes Alcohol type: beer alcohol intake frequency: a few times a week (2 beer/week) Hx Substance Use: No substance use type: does not use Review of Systems Patient denies chest pain, shortness of breath, dyspnea on exertion, fever, chills, cough, wheezing, palpitations. Physical Exam Vital Signs VITALS BP 130/87 P 84 TEMP 98.0 SP02 95-97%RA RESP 15 PHYSICAL Full cervical extension range of motion. Full TMJ range of motion. TMD 3.5 finger breaths Mallampati Score 3 Dentition: right upper side missing, + crowns (molars) Lungs: clear throughout to auscultation Cardiac: regular rate and rhythm, no murmurs noted Spine: normal Carotid arteries: negative bruit Extremities: no LE edema + short beaulieu (patient agreeable to trim/shorten) Lab Results Anesthesia Preop Results Results Anesthesia Widget: WBC 8.37 K/ul (4.8-10.8) 06/20/23 Hgb 14.7 g/dl (14.0-18.0) 06/20/23 Hct 43.3 % (42.0-52.0) 06/20/23 Plt 244 K/uL (130-400) 06/20/23 Na 138 mmol/L (136-145) 06/20/23 K 4.2 mmol/L (3.5-5.1) 06/20/23 Cl 104 mmol/L (98-107) 06/20/23 CO2 28 mmol/L (21-32) 06/20/23 BUN 21 mg/dl (6-23) 06/20/23 Creat 0.86 mg/dl (0.6-1.4) 06/20/23 Glucose Level 94 mg/dl (70-99(Fasting)) 06/20/23 PT 11.1 Seconds (9.0-12.0) 06/20/23 PTT 30 Seconds (21-31) 06/20/23 INR 1.0 (0.9-1.1) 06/20/23 Blood Type A Negative 06/20/23 Antibody Screen NEGATIVE 06/20/23 Testing Electrocardiogram Date: 06/20/23 NSR at 80bpm. iRBBB. No significant change compared to 06/23/2022 per cardiolog ist comparison. Chest X-Ray Date: 06/20/23 FINDINGS: No lines and tubes are seen. The cardiomediastinal silhouette is normal. The lungs are clear. No evidence of pleural effusion or pneumothorax. IMPRESSION: No acute chest disease.
--- NOTE | 2023-07-19 07:50 | History & Physical Report ---
Date of Service July 19, 2023 Assessment & Plan (1) Degenerative joint disease of right hip: Plan: Right total hip replacement overnight stay with discharge with same-day [facility] with [facility] (2) Morbid obesity with BMI of 40.0-44.9, adult: (3) Status post total left knee replacement: (4) Primary osteoarthritis of left knee: History of Present Illness Chief Complaint: Right hip pain Primary Care Provider: Israel Bahena PA-C Patient is a large statured morbidly obese 63-year-old male with greater than 1 year history of right hip and groin pain. The pain is associated with decreased range of motion decreased standing and walking tolerance and giving out sensation. He rates his pain as a 7 out of 10. He has radiographic evidence of advanced arthritis of the hip with moderate acetabular dysplasia and has failed conservative management to include injections. Allergies Allergy/AdvReac Type Severity Reaction Status Date / Time No Known Allergies Allergy Unknown Verified 06/19/23 09:36 Home Medications Medication Instructions Recorded Confirmed Type ascorbic acid (vitamin C) 500 mg 1,000 mg PO QAM 06/20/22 06/19/23 History tablet (Vitamin C) multivitamin 1 tab PO QAM 06/20/22 06/19/23 History vitamin B complex 1 tab PO QAM 06/20/22 06/19/23 History lisinopril 20 1 tab PO QAM 07/27/22 06/19/23 History mg-hydrochlorothiazide 25 mg tablet cefadroxil 500 mg capsule 500 mg PO BID #14 caps 07/28/22 06/19/23 Rx polyethylene glycol 3350 17 gram 17 g PO DAILY PRN constipation #5 07/28/22 06/19/23 Rx oral powder packet (Miralax) ea meloxicam 15 mg tablet 15 mg PO DAILY PRN Pain 06/19/23 06/19/23 History naltrexone 50 mg tablet 25 mg PO QAM 06/19/23 06/19/23 History Past Med/Surg History Medical History ALLISON (nonalcoholic steatohepatitis) Obese Prescribed naltrexone/bupropion 03/2023 by PCP for appetite suppression > Per patient at [facility] 06/20/23, no longer taking bupropion. Will be seeing PCP for preop appt 07/01/23. Snores No formal sleep study, + witnessed apneic events GERD (gastroesophageal reflux disease) controlled, stable per pt Hypertension controlled, stable per pt Hyperlipidemia Glaucoma no meds Surgical History History of total knee replacement Left TKA (07/27/22): SAB L3-L4, 1 attempt + PNB at [facility] S/P trigger finger release History of wisdom tooth extraction History of arthroscopy of left knee History of umbilical hernia repair History of colonoscopy Family History Other No family history of adverse response to anesthesia Social History Smoking Status: Never smoker Tobacco Type: Smokeless Tobacco (Dip or Chew) Second Hand Exposure: No; Do You Dip or Chew Tobacco: No (Quit, hx of 15 yrs ago); Hx Alcohol Use: Yes Alcohol type: beer Alcohol Intake Frequency Comment: 3 beers daily Hx Substance Use: No Preferred Language: Yi Communication Ability: Effective 3D Designer Required: No Beliefs That Will Affect Care: None Current Living Situation: Spouse Feels Safe at Home: Yes Assistive Devices: Contacts Review of Systems Review of Systems: Hip pain Physical Exam Physical Exam: General: Obese male who appears to be his stated age. HEENT: NCAT, EOMI, PERRLA Neck: Thick but no appreciated bruits Heart: Regular rate and rhythm no murmurs or gallops Lungs: Breath sounds clear and present in all saucedo Abdomen: Obese soft nontender bowel sounds positive Extremities: Right leg shows equal leg lengths to the left passive range of motion is 0 to 90 degrees flexion 0 degrees internal rotation all which reproduces groin pain. Neurological and vascular: Intact Results & Data Results & Data Vital Signs (Past 12 Hours) Weight 131 kg BMI 40 Blood pressure 144/78 Pulse 72
[~2023-07-20 08:38] MED LIST changes: +BUPIVACAINE 0.5 % 5 MG/1 ML PF 10ML VIAL ONE; +GABAPENTIN 300 MG CAP PO SCH; -GABAPENTIN 600 MG DOSE PO SCH; +LR 60ML/HR IV SCH; +ROPIVACAINE 0.5% HCL/PF 150 MG, BUPIVACAINE 0.75% MPF 20 ML, EPINEPHrine 30MG/30ML (OR ... INFIL SCH; -ROPIVACAINE 0.5% HCL/PF 150 MG, BUPIVACAINE 0.75% MPF 20 ML, EPINEPHrine 30MG/30ML (OR ... INSTIL SCH; +traMADol HCL 50 MG TABLET PO SCH
[2023-07-20] MEDS ORDERED: MIDAZOLAM HCL 1 MG/ML 2ML VIAL ONE ×2 (09:20)
[2023-07-20] MEDS ORDERED: fentaNYL citrate PF 100 MCG/2 ML VIAL ONE (09:20)
[2023-07-20] MEDS ORDERED: LIDOCAINE 2% 2 ML VIAL/AMP(20MG/ML) INFIL ONE (09:21)
[2023-07-20] MEDS ORDERED: ONDANSETRON INJ 2 MG/ML 2 ML VIAL ONE (09:22)
[2023-07-20] MEDS ORDERED: PROPOFOL IV EMULSION 10 MG/ML 20 ML VIAL IV ONE ×3 (09:22→11:38)
--- NOTE | 2023-07-20 09:34 | History & Physical Bridge Note ---
Date of Service July 20, 2023 History & Physical Bridge Note I have examined the patient, reviewed the History & Physical and in the interval since the performance of the History & Physical I have noted the following changes of clinical significance: no changes noted
[2023-07-20] MEDS ORDERED: ORTHO JOINT ANESTHETIC ONE (09:55)
[2023-07-20] MEDS ORDERED: ONDANSETRON INJ 2 MG/ML 2 ML VIAL IV PRN ×2 (09:57→12:25)
[2023-07-20] MEDS ORDERED: ATROPINE SULFATE 0.1 MG/ML 10ML SYR IV PRN (09:57)
[2023-07-20] MEDS ORDERED: ePHEDrine sulfate 50 MG/ML AMP IV PRN (09:57)
[2023-07-20] MEDS ORDERED: fentaNYL citrate PF 100 MCG/2 ML VIAL IV PRN (09:57)
[2023-07-20] MEDS ORDERED: PHENYLEPHRINE 100MCG/ML 10ML SYR IV ONE (11:21)
[2023-07-20] MEDS ORDERED: PHENYLEPHRINE HCL 10 MG/ML VIAL ONE (11:21)
[2023-07-20] MEDS ORDERED: KETOROLAC 30 MG/ML VIAL ONE (12:11)
--- NOTE | 2023-07-20 12:23 | Post Operative Brief Note ---
Immediate Post Op Note v1 Date of Surgery July 20, 2023 Pre & Post Diagnosis Operation Date: 07/20/23 10:15 Pre-Op Diagnosis: Right Hip Osteoarthritis Post-Op Diagnosis: Right Hip Osteoarthritis I identified the patient and participated in the time-out.: Yes Procedure Operation Date: 07/20/23 10:15 Actual Procedures p Right Total Hip Replacement Anterior Approach(Right) - Lex Haynes MD Surgeon Lex Haynes MD Supervisor Capacitor Processing Russell Sandoval PAC Estimated Blood Loss 200 Findings Consistent with Post-Op Diagnosis
[2023-07-20] MEDS ORDERED: bisacodyL 10 MG SUPP PR PRN (12:25)
[2023-07-20] MEDS ORDERED: NALOXONE HCL 0.4 MG/1 ML VIAL/CARP IV PRN (12:25)
[2023-07-20] MEDS ORDERED: METOCLOPRAMIDE HCL INJ 5 MG/ML 2 ML VIAL IV PRN (12:25)
[2023-07-20] MEDS ORDERED: MAGNESIUM HYDROXIDE SUSP 30 ML UDC PO PRN (12:25)
--- NOTE | 2023-07-20 12:32 | Fluoroscopy Report ---
FL hip RT 1V CLINICAL HISTORY: RIGHT ANTERIOR HIPright hip arthroplasty COMPARISON STUDY: CT 01/16/2006 FLUOROSCOPY TIME: 9.5 seconds FLUOROSCOPY IMAGES: 1 EXPOSURE DOSE: 4.0250 mGy FINDINGS: Right hip arthroplasty demonstrates satisfactory alignment. No acute fracture or an expecte d opaque foreign body identified. IMPRESSION: Fluoroscopic assistance as above. ACT 112: Negative or not required by law. Electronically signed by: Piotr May M.D. 07/20/2023 12:31 PM
--- NOTE | 2023-07-20 12:58 | Anesthesiology Progress Note ---
Date of Service July 20, 2023 Anesthesia Post Procedure Vital Signs Vital Signs: Temp Pulse Resp BP Pulse Ox O2 Del Method 07/20/23 09:17 36.4 C L 86 20 148/98 H 98 Room Air Transfer of Care Handoff Completed per policy Notes Mental Status: alert / awake / arousable Patient Amnestic to Procedure: Yes Nausea / Vomiting: adequately controlled Pain: adequately controlled Airway Patency, RR, SpO2: stable & adequate BP & HR: stable & adequate Hydration State: stable & adequate Neuraxial Anesthesia: was administered and sensory block is resolving Anesthetic Complications: no major complications apparent and Pt Satisfied with anesthetic care
--- OUTSIDE RECORDS SUMMARY | 2023-07-20 13:38 | External Medical Summary ---
Author Name Unknown Address Unknown Organization [id number][place] [facility] [place] [address] [facility] [address] Laboratory Report Ordering Provider Test Date Status DARRYL IGLESIAS 07/01/2023 10:12:55 Final Observation Date Value Abnormality Reference (Units ) Status Color of Urine by Auto 07/01/2023 10:12:55 Colorless Colorless, Light Yellow, Yellow, Dark Yellow Final Clarity, Urine 07/01/2023 10:12:55 Clear Clear Final Glucose [Mass/volume] in Urine by Automated test strip 07/01/2023 10:12:55 Negative Negative (mg/dL) Final Bilirubin.total [Presence] in Urine by Automated test strip 07/01/2023 10:12:55 Negative Negative Final Ketones [Mass/volume] in Urine by Automated test strip 07/01/2023 10:12:55 Negative Negative (mg/dL) Final Specific gravity, Urine 07/01/2023 10:12:55 1.013 1.003-1.030 Final Hemoglobin [Presence] in Urine by Automated test strip 07/01/2023 10:12:55 Negative Negative Final pH, Urine 07/01/2023 10:12:55 6.5 5.0-7.5 (Units) Final Protein [Mass/volume] in Urine by Automated test strip 07/01/2023 10:12:55 Negative Negative (mg/dL) Final Urobilinogen [Mass/volume] in Urine by Automated test strip 07/01/2023 10:12:55 Normal Normal (mg/dL) Final Nitrite [Presence] in Urine by Automated test strip 07/01/2023 10:12:55 Negative Negative Final Leukocyte esterase [Presence] in Urine by Automated test strip 07/01/2023 10:12:55 Negative Negative Final RBC, Urine 07/01/2023 10:12:55 0-2 0-2 (/HPF) Final WBC, Urine 07/01/2023 10:12:55 0-2 0-2 (/HPF) Final Bacteria [#/area] in Urine sediment by Microscopy high power field 07/01/2023 10:12:55 0-25 0-25 (/HPF) Final CULTURE, URINE - DORI 07/01/2023 10:12:55 Final Culture not indicated by uri nalysis results\X09\ Performing Location [facility] [facility] [address] [facility] [address]
--- OUTSIDE RECORDS SUMMARY | 2023-07-20 13:38 | External Medical Summary | Summary of Care ---
Author Name Unknown Organization [facility] Address [address] [facility] [place] [address] Phone [phone] Care Team Providers Care Strip Cutter Name Role Phone Beryl Engel PA-C Primary Care Provider Reason for Visit * Reason Comments eRx-Medication Refill Encounter Details Date Type Department Care Team (Late st Contact Info) Description 06/20/[address] [facility] [place] [phone] Beryl Engel PA-C 21 [facility] [place] [id number] Essential hypertension with goal blood pressure less than 140/90 Allergies No known active allergiesdocumented as of this encounter (statuses as of 06/20/2023) Medications Medication Sig Dispensed Refills Start Date End Date Status VITAMIN C 500 MG PO CAPS 2 capsules daily 0 Active MULTIVITAMINS PO CAPS one pill each day 0 Active FISH OIL 1200 MG PO CAPS Take by mouth. 0 Active B Complex Oral Tablet Take 1 Tablet by mouth in the morning. 0 Active amLODIPine Besylate 5 MG Oral Tablet (Norvasc)Indicati ons:HTN, goal below 140/90 Take 1 Tablet by mouth every night at bedtime. 30 Tablet 5 09/27/2022 Active Additional Information Patient not taking.Reported on 04/04/2023 Meloxicam 15 MG Oral Tablet Take 1 Tablet by mouth in the morning. 0 03/24/2023 Active buPROPion HCl 75 MG Oral Tablet (Wellbutrin)Indic ations:Body mass index (BMI) of 40.0 to 44.9 in adult (HCC) Take 1 Tablet by mouth in the morning and 1 Tablet before bedtime. 60 Tablet 5 04/04/2023 Active Naltrexone HCl 50 MG Oral Tablet (Revia)Indication s:Body mass index (BMI) of 40.0 to 44.9 in adult (HCC) Take 0.5 Tablets by mouth in the morning. 30 Tablet 5 04/04/2023 Active Lisinopril-hydroC HLOROthiazide 20-25 MG Oral TabletIndications :Essential hypertension with goal blood pressure less than 140/90 TAKE 1 TABLET BY MOUTH ONCE DAILY IN THE MORNING 90 Tablet 3 06/20/2023 Active Lisinopril-hydroC HLOROthiazide 20-25 MG Oral TabletIndications :Essential hypertension with goal blood pressure less than 140/90 TAKE 1 TABLET BY MOUTH ONCE DAILY IN THE MORNING 90 Tablet 0 03/19/2023 3 Discontinued documented as of this encounter (statuses as of 06/20/2023) Active Problems Problem Noted Date Diagnosed Date Diverticulitis of sigmoid colon 12/05/2022 ALLISON (nonalcoholic steatohepatitis) 07/01/2022 Morbid obesity due to excess calories 03/06/2020 Body mass index (BMI) of 40.0 to 44.9 in adult 1 Overview: Per Obesity protocol #1 Hyperlipidemia with target LDL less than 130 Overview: ICD-10 update of inactive term HTN, goal below 140/90 06/02/2011 ADVANCE DIRECTIVE INFORMATION 09/27/2005 Overview: No, Advance Directive brochure given to patient. Family history of ischemic heart disease 004 Calculus of kidney Overview: PASSED SPONTANEOUSLY AND WITH ? BASKET EXTRACTION (TOTAL 6 IN PAST 10 YEARS) Umbilical hernia documented as of this encounter (statuses as of 06/20/2023) Resolved Problems Problem Noted Date Diagnosed Date Resolved Date HTN, goal below 130/80 06/17/201006/02 Dyslipidemia, goal to be determined 06/25/2009 06/17/2010 Overview: Per Lipid Taxonomy. OBESITY, UNSPECIFIED 09/27/2005 007 HYPERCHOLESTEROLEMIA 12/10/2003 009 Overview: Per Lipid Taxonomy. documented as of this encounter (statuses as of 06/20/2023) Immunizations Name Administration Dates Next Due COVID-19 mRNA, LNP-s, No Pre serve, 2-Dose Series (Moderna) 09/19/2020,08/15/2020 COVID-19, mRNA, LNP-s, PF, B ooster, 100mcg/0.5mg (Moderna) 06/19/2021 Covid-19, Mrna, Lnp-s, Pf, B ivalent, 30 Mcg, IM, 12 yrs and above (Pfizer) 07/04/2022 Hepatitis B, 20+ yrs 02/22/2012,09/29/2011,08/30 SEASONAL INFLUENZA, PF, 6 M & Above, IM , (FLULAVAL or FLUZONE) 04/04/2023,04/20/2021,04/14/2020 Seasonal Influenza, Quadriva lent, No Preserve, IM 06/04/2018 Seasonal Influenza, Split, I IV3, With Preserve, Inj 04/30/2015,05/06/2014,04/29/2013,2011,05/02/2011,05/31/2010,08/25/2006 TD, Preservative Free 01/04/2018 TDAP (age 10 and older)(Boostrix) 09/17/2019 TDAP (age 11 and older)(Adacel) 02/23/2007 Zoster Vaccine Recombinant (Shingrix) 02/25/2019 documented as of this encounter Social History Tobacco Use Types Packs/Day Years Used Date Smoking Tobacco: Never Smokeless Tobacco: Former Chew Quit: 07/17/2010 Comments:ONE CAN EVERY TWO D AYS--QUIT COLD TURKEY 07/17/2010 Alcohol Use Standard Drinks/Week Comments Yes 21 (1 standard drink = 0.6 oz pu re alcohol) 2-3 cans of beer a day PHQ-2 Answer Date Recorded PHQ Adult Total Score 0 09/27/2022 Hunger Vital Sign Answer Date Recorded Within the past 12 months, y ou worried that your food would run out before you got the money to buy more. Never true 09/28/19 23 Within the past 12 months, t he food you bought just didn't last and you didn't have money to get more. Never true 09/27/2022 Sex and Gender Information Value Date Recorded Sex Assigned at Male 11/09/2018 3:51 PM EDT Gender Identity Male 11/09/2018 3:51 PM EDT Sexual Orientation Straight 11/09/2018 3: 51 PM EDT Job Start Date Occupation Industry Not on file Not on file Not on file documented as of this encounter Miscellaneous Notes * Telephone Encounter - Ricardo Larsen RPh - 06/20/2023 3:37 PM ESTSigned Prescriptions: Disp Refills Lisinopril-hydroCHLOROthiazide 20-25 MG Or*90 Tab*3 Sig: TAKE 1 TABLET BY MOUTH ONCE DAILY IN THE MORNINGAuthorizing Provider: BERYL ENGEL User: RICARDO LARSEN documented in this encounter Plan of Treatment Upcoming Encounters Date Type Department Care Team (Late st Contact Info) Description 07/01/2023 9:20 AM EST Office Visit [facility] [address] [place] [phone] Krystyna Rodriguez CRNP [address] [place] [address] [id number] 10/10/2023 3:30 PM EDT Office Visit Ophthalmology, [place] [address] [place] [phone] Kamran Bey MD [address] [place] [id number] 04/09/2024 4:40 PM EDT Office Visit [facility] [place] [address] [phone] Junior Bates MD [address] [place] [id number] Scheduled Procedures Name Priority Associated Diagnoses Date/Ti me COLONOSCOPY FLEXIBLE PROXIMA L DIAGNOSTIC Recall Screening for colon cancer Health Maintenance Due Date Last Done Comments Cologuard 2007 Sigmoidoscopy 2007 Fecal Occult Blood Test 01/04/2019 01/04/2018 COVID-19 Vaccine ( season) 2023 07/04/2022, 06/19/2021, 09/19/2020, Additional history exists Depression Screening 09/28/2023 09/27/2022 GFR 04/08/2024 04/08/2023, 06/16, 10/14/2020, Additional history exists Albumin/Creatinine Ratio 04/04/2026 04/04/2023 Diabetes Screening 04/08/2026 04/08/2023, 1 08/26/2020, 10/14/2020, Additional history exists Lipid Panel 04/08/2028 04/08/2023, 06/16, 10/14/2020, Additional history exists DTaP,Tdap,and Td Vaccines (4 - Td or Tdap) 09/16/2029 09/17/2019, 01/04/2018, 02/23/2007, Additional history exists Colonoscopy 12/05/2032 12/05/2022, 11/15, 05/25/2012, Additional history exists Colorectal Cancer Screening 12/05/2032 Hepatitis B Completed 02/22/2012, 09/14, 08/30/2011 Zoster Vaccines Discontinued 02/25/2019 Influenza Vaccine (FLU shot) Completed 04/04/2023, 04/20/2021, 04/14/2020, Additional history exists GARDASIL-HPV IMMUNIZATION SERIES Aged Out No longer eligible based on patient's age to complete this topic MENINGOCOCCAL (MENACTRA/MENVEO) Aged Out No longer eligible based on patient's age to complete this topic Pneumococcal Vaccine: Pediatrics (0 to 5 Years) and At-Risk Patients (6 to 64 Years) Aged Out No longer eligible based on patient's age to complete this topic documented as of this encounter Medical Devices Not on filedocumented as of this encounter Visit Diagnoses Diagnosis Essential hypertension with goal blood pressure less than 140/90 documented in this encounter Care Teams Strip Cutter Relationship Specialty Start Date End Date Beryl Engel PA-C [address] [phone] PCP - General Physician Box Shook Patcher 05/25/12 documented as of this encounter
--- OUTSIDE RECORDS SUMMARY | 2023-07-20 13:38 | External Medical Summary | Summary of Care ---
Author Name Unknown Organization [facility] Address [address] [facility] [place] [address] Phone [phone] Care Team Providers Care Nurse Auditor Name Role Phone Israel Bahena PA-C Primary Care Provider [phone] Encounter Details Date Type Department Care Team (Late st Contact Info) Description 06/22/2023 Orders Only [facility] [place] [phone] Israel Bahena PA-C 21 [employer] [facility] [id number] Allergies No known active allergiesdocumented as of this encounter (statuses as of 06/22/2023) Medications Medication Sig Dispensed Refills Start Date End Date Status VITAMIN C 500 MG PO CAPS 2 capsules daily 0 Active MULTIVITAMINS PO CAPS one pill each day 0 Active FISH OIL 1200 MG PO CAPS Take by mouth. 0 Active B Complex Oral Tablet Take 1 Tablet by mouth in the morning. 0 Active amLODIPine Besylate 5 MG Oral Tablet (Norvasc)Indications :HTN, goal below 140/90 Take 1 Tablet by mouth every night at bedtime. 30 Tablet 5 09/27/2022 Active Additional Information Patient not taking.Reported on 04/04/2023 Meloxicam 15 MG Oral Tablet Take 1 Tablet by mouth in the morning. 0 03/24/2023 Active buPROPion HCl 75 MG Oral Tablet (Wellbutrin)Indicati ons:Body mass index (BMI) of 40.0 to 44.9 in adult (HCC) Take 1 Tablet by mouth in the morning and 1 Tablet before bedtime. 60 Tablet 5 04/04/2023 Active Naltrexone HCl 50 MG Oral Tablet (Revia)Indications:B tri mass index (BMI) of 40.0 to 44.9 in adult (HCC) Take 0.5 Tablets by mouth in the morning. 30 Tablet 5 04/04/2023 Active Lisinopril-hydroCHLO ROthiazide 20-25 MG Oral TabletIndications:Es sential hypertension with goal blood pressure less than 140/90 TAKE 1 TABLET BY MOUTH ONCE DAILY IN THE MORNING 90 Tablet 3 06/20/2023 Active documented as of this encounter (statuses as of 06/22/2023) Active Problems Problem Noted Date Diagnosed Date [...] as of this encounter (statuses as of 06/22/2023) Resolved Problems Problem Noted Date Diagnosed Date Resolved Date HTN, goal below 130/80 06/17/201006/02 Dyslipidemia, goal to be determined 06/25/2009 06/17/2010 Overview: Per Lipid Taxonomy. OBESITY, UNSPECIFIED 09/27/2005 007 HYPERCHOLESTEROLEMIA 12/10/2003 009 Overview: Per Lipid Taxonomy. documented as of this encounter (statuses as of 06/22/2023) Immunizations Name Administration Dates Next Due COVID-19 [...] on file documented as of this encounter Plan of Treatment Upcoming Encounters Date Type Department Care Team (Late st Contact Info) Description 07/01/2023 9:20 AM EST Office Visit [facility] [address] [place] [phone] Krystyna Rodriguez CRNP [facility] [place] [address] 10/10/2023 3:30 PM EDT [facility] [address] [place] [address] Kamran Bey MD 21 [place] [address] 04/09/2024 4:40 PM EDT Office Visit [facility] [address] [place] [phone] Junior Bates MD [address] [place] [id number] Scheduled Procedures Name Priority Associated Diagnoses Date/Ti me COLONOSCOPY FLEXIBLE PROXIMA L DIAGNOSTIC Recall Screening for colon cancer Health Maintenance Due Date Last Done Comments Cologuard 2007 Sigmoidoscopy 2007 Fecal Occult Blood Test 01/04/2019 01/04/2018 COVID-19 Vaccine ( season) 2023 07/04/2022, 06/19/2021, 09/19/2020, Additional history exists Depression Screening 09/28/2023 09/27/2022 GFR 06/20/2024 06/20/2023, 03/18, 06/25/2021, Additional history exists Albumin/Creatinine Ratio 04/04/2026 04/04/2023 Diabetes Screening 06/20/2026 06/20/2023, 0 04/08/2023, 06/25/2021, Additional history exists Lipid Panel 04/08/2028 04/08/2023, [...] Not on filedocumented as of this encounter Procedures Procedure Name Priority Date/Time Associated Diagnosis Comments XR CHEST 2 VIEWS Routine 06/20/2023 documented in this encounter Results * XR CHEST 2 VIEWS (06/20/2023) Anatomical Region Laterality Modality Chest Other 06/20/2023 Lex Haynes MD RADIOLOGY (RAD GE NERAL) documented in this encounter Care Teams Nurse Auditor Relationship Specialty Start Date End Date Israel Bahena PA-C 21 [place] [id number] PCP - General Physician Private Duty Aide 05/25/12 documented as of this encounter
--- OUTSIDE RECORDS SUMMARY | 2023-07-20 13:38 | External Medical Summary | Summary of Care ---
Author Name Unknown Organization [facility] Address [address] [facility] [place] [address] Phone [phone] Care Team Providers Care Centrifugal Drier Operator Name Role Phone Israel Bahena PA-C Primary Care Provider [phone] Reason for Visit * Reason Comments pre-op exam Right hip replacemen t Encounter Details Date Type Department Care Team (Late st Contact Info) Description 07/01/2023 9:20 AM EST Office Visit [facility] [place] [address] [place] [phone] Krystyna Rodriguez CRNP 21 [place] [address] Preoperative clearance*; Morbid obesity due to excess calories (HCC); Osteoarthritis of one hip, right; HTN, goal below 140/90; Other specified pre-operative examination Allergies No known active allergiesdocumented as of this encounter (statuses as of 07/01/2023) Medications Medication Sig Dispensed Refills Start Date End Date Status VITAMIN C 500 MG PO CAPS 2 capsules daily 0 Active MULTIVITAMINS PO CAPS one pill each day 0 Active FISH OIL 1200 MG PO CAPS Take by mouth. 0 Active B Complex Oral Tablet Take 1 Tablet by mouth in the morning. 0 Active buPROPion HCl 75 MG Oral Tablet (Wellbutrin)Indica tions:Body mass index (BMI) of 40.0 to 44.9 in adult (HCC) Take 1 Tablet by mouth in the morning and 1 Tablet before bedtime. 60 Tablet 5 04/04/2023 Active Naltrexone HCl 50 MG Oral Tablet (Revia)Indications :Body mass index (BMI) of 40.0 to 44.9 in adult (HCC) Take 0.5 Tablets by mouth in the morning. 30 Tablet 5 04/04/2023 Active Lisinopril-hydroCH LOROthiazide 20-25 MG Oral TabletIndications: Essential hypertension with goal blood pressure less than 140/90 TAKE 1 TABLET BY MOUTH ONCE DAILY IN THE MORNING 90 Tablet 3 06/20/2023 Active amLODIPine Besylate 5 MG Oral Tablet (Norvasc)Indicatio ns:HTN, goal below 140/90 Take 1 Tablet by mouth every night at bedtime. 30 Tablet 5 09/27/2022 07/01/2023 Discontinued (Patient preference/d iscontinuati on) Meloxicam 15 MG Oral Tablet Take 1 Tablet by mouth in the morning. 0 03/24/2023 07/01/2023 Discontinued (Patient preference/d iscontinuati on) documented as of this encounter (statuses as of 07/01/2023) Active Problems Problem Noted Date Diagnosed Date [...] as of this encounter (statuses as of 07/01/2023) Resolved Problems Problem Noted Date Diagnosed Date Resolved Date HTN, goal below 130/80 06/17/201006/02 Dyslipidemia, goal to be determined 06/25/2009 06/17/2010 Overview: Per Lipid Taxonomy. OBESITY, UNSPECIFIED 09/27/2005 007 HYPERCHOLESTEROLEMIA 12/10/2003 009 Overview: Per Lipid Taxonomy. documented as of this encounter (statuses as of 07/01/2023) Immunizations Name Administration Dates Next Due COVID-19 mRNA, LNP-s, No Pre serve, 2-Dose Series (Moderna) 09/19/2020,08/15/2020 COVID-19, mRNA, LNP-s, PF, B ooster, 100mcg/0.5mg (Moderna) 06/19/2021 Covid-19, Mrna, Lnp-s, Pf, B ivalent, 30 Mcg, IM, 12 yrs and above (Pfizer) 07/04/2022 Hepatitis B, 20+ yrs 02/22/2012,09/29/2011,08/30 Seasonal Influenza, PF, 6 M & above, IM , (FluLaval or Fluzone) 04/04/2023,04/20/2021,04/14/2020 Seasonal Influenza, Quadriva lent, No Preserve, IM 06/04/2018 Seasonal Influenza, Split, I IV3, With Preserve, Inj 04/30/2015,05/06/2014,04/29/2013,2011,05/02/2011,05/31/2010,08/25/2006 TD - Tetanus/Diptheria (ADULT) 08/02/2001 TD, Preservative Free 01/04/2018 TDAP (age 10 and older)(Boostrix) 09/17/2019 TDAP (age 11 and older)(Adacel) 02/23/2007 Zoster Vaccine Recombinant (Shingrix) 02/25/2019 documented as of this encounter Social History Tobacco Use Types Packs/Day Years Used Date Smoking Tobacco: Never Smokeless Tobacco: Former Chew Quit: 07/17/2010 Tobacco Cessation:Counseling Given: Not Answered Comments:ONE CAN EVERY TWO DAYS--QUIT COLD TURKEY 07/17/2010 Alcohol Use Standard Drinks/Week [...] on file documented as of this encounter Last Filed Vital Signs Vital Sign Reading Time Taken Comments Blood Pressure 138/78 07/01/2023 9:55 AM EST Pulse 72 07/01/2023 9:39 AM EST Temperature 36 C (96.8 F) 07/01/2023 9:39 AM EST Respiratory Rate - - Oxygen Saturation 97% 07/01/2023 9:39 AM EST Inhaled Oxygen Concentration - - Weight 130.1 kg (286 lb 12.8 oz) 07/01/2023 9:39 AM EST Height - - Body Mass Index 40 04/04/2023 4:45 PM EDT documented in this encounter Progress Notes * Krystyna Rodriguez CRNP - 07/01/2023 9:43 AM EST Images from the original note were not included. Pre-Operative Medical Evaluation Procedure Information Type of Surgery: Right hip replacement Referring Physician / Surgeon: Dr. Haynes Date of procedure: 07/20/2023 Brief History of Present Illness: Planning for right hip replacement July 2023. Primary symptoms are hip and low back pain, worse when he first gets up to walk. Review of Systems Constitutional: Positive for activity change. Negative for chills, fatigue and fever. HENT: Positive for congestion. Negative for rhinorrhea and sore throat. Respiratory: Negative for cough, shortness of breath and wheezing. Cardiovascular: Negative for chest pain and palpitations. Gastrointestinal: Negative for constipation, diarrhea, nausea and vomiting. Musculoskeletal: Positive for arthralgias (right hip/groin), back pain and gait problem. Skin: Negative for rash and wound. Neurological: Negative for dizziness, syncope and light-headedness. Psychiatric/Behavioral: Negative for dysphoric mood and sleep disturbance. The patient is not nervous/anxious. Medical History Problem List: Diverticulitis of sigmoid colon (12/05/2022) ALLISON (nonalcoholic steatohepatitis) (07/01/2022) Morbid obesity due to excess calories (HCC) (03/06/2020) Body mass index (BMI) of 40.0 to 44.9 in adult (HCC) (04/17/2017) Hyperlipidemia with target LDL less than 130 (06/12/2012) HTN, goal below 140/90 (06/02/2011) HTN, goal below 130/80 (06/17/2010) Dyslipidemia, goal to be determined (06/25/2009) ADVANCE DIRECTIVE INFORMATION (09/27/2005) OBESITY, UNSPECIFIED (09/27/2005) HYPERCHOLESTEROLEMIA (12/10/2003) Family history of ischemic heart disease (12/10/2003) Calculus of kidney Umbilical hernia Current Medications Lisinopril-hydroCHLOROthiazide 20-25 MG Oral Tablet, TAKE 1 TABLET BY MOUTH ONCE DAILY IN THE MORNING buPROPion HCl 75 MG Oral Tablet (Wellbutrin), 75 mg, Oral, BID(AM/PM) Naltrexone HCl 50 MG Oral Tablet (Revia), 25 mg, Oral, Daily(AM) amLODIPine Besylate 5 MG Oral Tablet (Norvasc), 5 mg, Oral, QHS B Complex Oral Tablet, 1 Tablet, Oral, Daily(AM) FISH OIL 1200 MG PO CAPS, Take by mouth. MULTIVITAMINS PO CAPS, one pill each day VITAMIN C 500 MG PO CAPS, 2 capsules daily Allergies: Patient has no known allergies. Past Medical History: has a past medical history of Calculus of kidney, Chronic angle-closure glaucoma(365.23), Diverticulosis of colon (without mention of hemorrhage), and HTN, goal below 130/80 (06/17/2010). Past Surgical History: has a past surgical history that includes Iridotomy / Iridectomy, Laser (10/25/2010); Iridotomy / Iridectomy, Laser (11/15/2010); Colonoscopy, Diagnostic (Rectum) (05/25/2012); Colonoscopy, Diagnostic (Rectum) (05/25/2012); knee arthroscopy/remove object (Left, 10/23/2020); tendon sheath incision, f jhonny (Left, 10/23/2020); and Colonoscopy, Diagnostic (Rectum) (N/A, 12/05/2022). Social History: reports that he has never smoked. He quit smokeless tobacco use about 12 years ago. His smokeless tobacco use included chew. He reports current alcohol use of about 21.0 standard drinks of alcohol per week. He reports that he does not use drugs. Family History: family history is not on file. Anesthesia History Type of Anesthesia: General Endotracheal, MAC-Monitored Anesthesia Care, and Caudal block Anesthesia reaction: No History of surgical complications: None Personal history of venous thromboembolic disease: None Physical Exam Vitals: 07/01/23 0939 07/01/23 0955 Temp: 36 C (96.8 F) Pulse: 72 SpO2: 97% BP: 144/78 138/78 Physical Exam Vitals and nursing note reviewed. Constitutional: General: He is not in acute distress. Appearance: Normal appearance. He is obese. He is not ill-appearing. HENT: Head: Normocephalic and atraumatic. Mouth/Throat: Mouth: Mucous membranes are moist. Pharynx: Oropharynx is clear. Eyes: Extraocular Movements: Extraocular movements intact. Cardiovascular: Rate and Rhythm: Normal rate and regular rhythm. Heart sounds: Normal heart sounds. No murmur heard. No friction rub. No gallop. Pulmonary: Effort: Pulmonary effort is normal. No respiratory distress. Breath sounds: Normal breath sounds. No wheezing, rhonchi or rales. Abdominal: General: Bowel sounds are normal. Skin: General: Skin is warm and dry. Neurological: Mental Status: He is alert and oriented to person, place, and time. Gait: Gait abnormal (antalgic). Labs reviewed and are significant for: Unremarkable. EKG by my review is significant for: right bundle branch block, NSR Surgical Risk Scoring Revised Cardiac Risk Index (RCRI) High-risk type of surgery (examples include vascular and any open intraperitoneal or intrathoracic procedures): 0=No History of ischemic heart disease (history of myocardial infarction or positive exercise test, current compliant of chest pain considered to be secondary to myocardia ischemia, use of nitrate therapy, or ECG with pathological Q waves; do not count prior coronary revascularization procedure unless one of the other criteria for ischemic heart disease is present): 0=No History of heart failure: 0=No History of cerebrovascular disease: 0=No Diabetes mellitus requiring treatment with insulin: 0=No Preoperative serum creatinine >2.0 mg/dL (177 micromol/L): 0=No Pt has revised cardiac index score of: No Risk Factors- 0.4% (95% CI: 0.1-0.8) Screening for Obstructive Sleep Apnea (STOP-BANG) Do you Snore loudly? 1=Yes Do you often feel Tired, Fatigued, or Sleep? 0=No Has anyone Observed you Stop Breathing or Choking/Gasping during sleep? 1=Yes Do you have or are you being treated for High Blood Pressure? 1=Yes BMI over 35? 1=Yes Age older than 50? 1=Yes Neck size large? (For males - 17 inches or larger, For females - 16 inches or larger) 1=Yes Male? 1=Yes Score 0-2:low risk BRAYDON, 3-4: intermediate risk of BRAYDON, 5-8: high risk BRAYDON 7 Assessment and Plan Preoperative clearance Per RCRI patient is considered to be low risk for proposed procedure. Morbid obesity due to excess calories (HCC) Has lost about 20 pounds in the last year. Hoping to loose more after hip replacement and he can exercise more. Osteoarthritis of one hip, right Planning for hip replacement. HTN, goal below 140/90 At goal today. Continue current medications. Functional Assessment They are able to walk up a flight of stairs and do heavy house work like vacuuming. The patient's functional status is good (greater than 4 METS). 1 MET: 4 METs: 4-10 METs: Can take care of self, such as eat, dress or use the toilet. Can walk to block or go up a flight of steps. Can do heavy house work. Surgical Risk Assessment Patient is low medical risk for the listed procedure. Medication adjustments: None Additional consults or testing: None documented in this encounter Nursing Notes * Shyann Cao NRCMA - 07/01/2023 9:37 AM EST Chief Complaint Patient presents with pre-op exam Right hip replacement documented in this encounter Plan of Treatment Upcoming Encounters Date Type Department Care Team (Late st Contact Info) Description 10/10/2023 3:30 PM EDT Office Visit Ophthalmology, [place] [address] [place] [address] [address] Kamran Bey MD [address] [place] [address] 04/09/2024 4:40 PM EDT Office Visit Family Practice, [place] [address] [place] [address] [phone] Junior Bates MD [address] [place] [address] Pending Results Name Type Priority Associated Diagnoses Date /Time URINALYSIS, REFLEX TO CULTURE (NOT FOR NEUTROPENIC PATIENTS) Lab Routine Other specified pre-operative examination 07/01/2023 10:12 AM EST URINALYSIS, REFLEX TO CULTURE (CUP ONLY) Lab Routine Other specified pre-operative examination 07/01/2023 10:12 AM EST URINALYSIS, REFLEX TO CULTURE Lab Routine Other specified pre-operative examination 07/01/2023 10:12 AM EST Scheduled Procedures Name Priority Associated Diagnoses Date/Ti [...] as of this encounter Visit Diagnoses Diagnosis Preoperative clearance- Primary Preoperative examination, unspecified Morbid obesity due to excess calories (HCC) Osteoarthritis of one hip, right HTN, goal below 140/90 Unspecified essential hypertension Other specified pre-operative examination documented in this encounter Care Teams Centrifugal Drier Operator Relationship Specialty Start Date End Date Israel Bahena PA-C 21 [place] [id number] PCP - General Physician Tree Farmer 05/25/12 documented as of this encounter
--- OUTSIDE RECORDS SUMMARY | 2023-07-20 13:38 | External Medical Summary | Summary of Care ---
Author Name Unknown Organization [facility] Address [address] [facility] [place] [address] Phone [phone] Care Team Providers Care Rotary Screen Printing Machine Operator Name Role Phone Israel Bahena PA-C Primary Care Provider [phone] Reason for Visit * Reason Comments pre-op exam Right hip replacemen t Encounter Details Date Type Department Care Team (Late st Contact Info) Description 07/01/2023 9:20 AM EST Office Visit [facility] [place] [address] [place] [address] [phone] Krystyna Rodriguez CRNP [...] 10/10/2023 3:30 PM EDT Office Visit Ophthalmology, [place] [address] [address] [address] Kamran Bey MD [address] [place] [address] 04/09/2024 4:40 PM EDT Office Visit Family Practice, [place] [address] [place] [address] [phone] Junior Bates MD [address] [place] [address] Pending Results Name Type Priority Associated Diagnoses [...] examination documented in this encounter Care Teams Rotary Screen Printing Machine Operator Relationship Specialty Start Date End Date Israel Bahena PA-C 21 [place] [phone] PCP - General Physician Housing Coordinator 05/25/12 documented as of this encounter
--- OUTSIDE RECORDS SUMMARY | 2023-07-20 13:38 | External Medical Summary | Summary of Care ---
Author Name Unknown Organization [facility] Address [address] [place] [address] Phone [phone] Care Team Providers Care Economics Analyst Name Role Phone Israel Bahena PA-C Primary Care Provider [phone] Encounter Details Date Type Department Care Team (Late st Contact Info) Description 07/01/2023 Orders Only [facility], [place] 21 [facility] [place] [phone] Ashley Armas PA-C [address], [place] [phone] Other specified pre-operative examination* Allergies No known active allergiesdocumented as of [...] Active buPROPion HCl 75 MG Oral Tablet (Wellbutrin)Indicatio ns:Body mass index (BMI) of 40.0 to 44.9 in adult (HCC) Take 1 Tablet by mouth in the morning and 1 Tablet before bedtime. 60 Tablet 5 04/04/2023 Active Naltrexone HCl 50 MG Oral Tablet (Revia)Indications:Marshall dy mass index (BMI) of 40.0 to 44.9 in adult (HCC) Take 0.5 Tablets by mouth in the morning. 30 Tablet 5 04/04/2023 Active Lisinopril-hydroCHLOR Othiazide 20-25 MG Oral TabletIndications:Ess ential hypertension with goal blood pressure less than [...] 10/10/2023 3:30 PM EDT Office Visit Ophthalmology, [place] 21 [facility] [place] [phone] Kamran Bey MD 21 [facility] [place] [address] 04/09/2024 4:40 PM EDT Office Visit [facility] [place] [facility] [place] [phone] Junior Bates MD 21 [facility] [place] [address] Pending Results Name Type Priority Associated Diagnoses Date /Time URINALYSIS, REFLEX TO CULTURE (NOT FOR NEUTROPENIC PATIENTS) Lab Routine Other specified pre-operative examination 07/01/2023 10:12 AM EST Scheduled Orders Name Type Priority Associated Diagnoses Orde r Schedule URINALYSIS, REFLEX TO CULTURE (NOT FOR NEUTROPENIC PATIENTS) Lab Routine Other specified pre-operative examination Expected: 07/01/2023, Expires: 07/01/2024 Scheduled Procedures Name Priority Associated Diagnoses Date/Ti [...] as of this encounter Visit Diagnoses Diagnosis Other specified pre-operative examination- Primary documented in this encounter Care Teams Economics Analyst Relationship Specialty Start Date End Date Israel Bahena PA-C 21 [place] [phone] PCP - General Physician Leather Craftsman 05/25/12 documented as of this encounter
--- OUTSIDE RECORDS SUMMARY | 2023-07-20 13:38 | External Medical Summary | Summary of Care ---
Author Name Unknown Organization [facility] Address [address] [facility] [place] [address] Phone [phone] Care Team Providers Care Software Test And Validation Engineer Name Role Phone Israel Bahena PA-C Primary Care Provider [phone] Encounter Details Date Type Department Care Team (Late st Contact Info) Description 06/22/2023 Orders Only [facility] [place] [phone] Israel Bahena PA-C [address] [facility] [phone] Allergies No known active allergiesdocumented as of [...] Description 07/01/2023 9:20 AM EST Office Visit [facility] [address] [place] [phone] Krystyna Rodriguez CRNP [facility] [place] [address] 10/10/2023 3:30 PM EDT [facility] [address] [place] [address] Kamran Bey MD [address] [place] [address] 04/09/2024 4:40 PM EDT Office Visit [facility] [address] [place] [phone] Junior Bates MD [address] [place] [phone] Scheduled Procedures Name Priority Associated Diagnoses Date/Ti [...] Procedure Name Priority Date/Time Associated Diagnosis Comments CHEMISTRY-OUTSIDE Routine 06/20/2023 documented in this encounter Results * CHEMISTRY-OUTSIDE (06/20/2023) Not all results display below - see scan for full detail OUTSIDE LAB (SEE SCANNED REPORT) Comment:SEE SCAN - PTINR, CM P, CBCD CREATININE-OUTSID E LAB 0.86 0.6 - 1.4 MG/DL OUTSIDE LAB (SEE SCANNED REPORT) EGFR-OUTSIDE LAB 93.6 ML/MIN OUT SIDE LAB (SEE SCANNED REPORT) POTASSIUM-OUTSIDE LAB 4.2 3.5 - 5.1 MMOL/L OUTSIDE LAB (SEE SCANNED REPORT) GLUCOSE-OUTSIDE LAB 94 70 - 99 MG/DL OUTSIDE LAB (SEE SCANNED REPORT) HOURS FASTING OUTSID E LAB (SEE SCANNED REPORT) TRIGLYCERIDES-OUT SIDE LAB OUTSIDE LAB (SEE SCANNED REPORT) CHOLESTEROL-OUTSI DE LAB OUTSIDE LAB (SEE SCANNED REPORT) HDL-OUTSIDE LAB OUTS [facility] (SEE SCANNED REPORT) CHOL/HDL RATIO-OUTSIDE LAB OUTSIDE LA B (SEE SCANNED REPORT) LDL (CALCULATED)-OUTS [facility] OUTSIDE LAB (SEE SCANNED REPORT) LDL (DIRECT MEASURE)-OUTSIDE LAB OUTSIDE LAB (SEE SCANNED REPORT) HEMOGLOBIN, Y2H-FJALKJV LAB OUTSIDE LAB (SEE SCANNED REPORT) PHOSPHORUS-OUTSID E LAB OUTSIDE LAB (SEE SCANNED REPORT) PTH-OUTSIDE LAB OUTS [facility] (SEE SCANNED REPORT) MICROALBUMIN RATIO-OUTSIDE LAB OUTSIDE LA B (SEE SCANNED REPORT) PROTEIN, UA-OUTSIDE LAB OUTSIDE LAB (SEE SCANNED REPORT) HEMOGLOBIN-OUTSID E LAB 14.7 14.0 - 18.0 G/DL OUTSIDE LAB (SEE SCANNED REPORT) 06/20/2023 Lex Haynes MD LABORATORY OUTSIDE LAB (SEE SCANNED REPORT) documented in this encounter Care Teams Software Test And Validation Engineer Relationship Specialty Start Date End Date Israel Bahena PA-C [address] [place] [phone] PCP - General Physician Major Sales Associate 05/25/12 documented as of this encounter
--- OUTSIDE RECORDS SUMMARY | 2023-07-20 13:38 | External Medical Summary | Summary of Care ---
Author Name Unknown Organization [facility] Address [address] [facility] [place] [address] Phone [phone] Care Team Providers Care Tool And Die Maker Level Five Name Role Phone Israel Bahena PA-C Primary Care Provider [phone] Reason for Visit * Reason Comments pre-op exam Right hip replacemen t Encounter Details Date Type Department Care Team (Late st Contact Info) Description 07/01/2023 9:20 AM EST Office Visit [facility] [place] [address] [place] [id number] Krystyna Rodriguez CRNP [...] 10/10/2023 3:30 PM EDT Office Visit Ophthalmology, [place] [address] [id number] Kamran Bey MD [address] [place] [address] 04/09/2024 4:40 PM EDT Office Visit Family Practice, [place] [address] [phone] Junior Bates MD [address] [place] [id number] Pending Results Name Type Priority Associated Diagnoses [...] examination documented in this encounter Care Teams Tool And Die Maker Level Five Relationship Specialty Start Date End Date Israel Bahena PA-C [address] [id number] PCP - General Physician Improvement Analyst 05/25/12 documented as of this encounter
--- OUTSIDE RECORDS SUMMARY | 2023-07-20 13:38 | External Medical Summary | Summary of Care ---
Author Name Unknown Organization [facility] Address [address] [facility] [place] [address] Phone [phone] Care Team Providers Care Retail Merchandising Manager Name Role Phone Israel Bahena PA-C Primary Care Provider [phone] Encounter Details Date Type Department Care Team (Late st Contact Info) Description 06/20/2023 Result Scan Unspecified Department <No scans attached> Allergies No known active allergiesdocumented as of [...] Description 07/01/2023 9:20 AM EST Office Visit [facility] [address] [facility] [place] [phone] Krystyna Rodriguez CRNP [facility] [place] [id number] 10/10/2023 3:30 PM EDT Office Visit [facility] [place] [address] [facility] [place] [phone] Kamran Bey MD [address] [facility] [place], [place] [phone] 04/09/2024 4:40 PM EDT Office Visit [facility] [address] [place] [phone] Junior Bates MD [address] [facility] [place], [place] [phone] Scheduled Procedures Name Priority Associated Diagnoses Date/Ti [...] Procedure Name Priority Date/Time Associated Diagnosis Comments EKG SCANNED RESULT 06/20/2023 documented in this encounter Results * EKG SCANNED RESULT (06/20/2023) 06/20/2023 No Physician Data Unknown EKG documented in this encounter Care Teams Retail Merchandising Manager Relationship Specialty Start Date End Date Israel Bahena PA-C [address] [facility] [place] [phone] PCP - General Physician Timber Setter 05/25/12 documented as of this encounter
--- NOTE | 2023-07-20 14:35 | Operative Report ---
Post Operative Report Pre & Post Diagnosis Operation Date: 07/20/23 10:15 Pre-Op Diagnosis: Right Hip Osteoarthritis Morbid obesity BMI 40 Post-Op Diagnosis: Right Hip Osteoarthritis morbid obesity BMI 40 I identified the patient and participated in the time-out.: Yes Procedure Operation Date: 07/20/23 10:15 Actual Procedures p Right Total Hip Replacement Anterior Approach(Right) - Lex Haynes MD Surgeon Lex Haynes MD Blending Tank Tender Helper Russell Sandoval PAC Estimated Blood Loss 200 Findings Consistent with Post-Op Diagnosis patient had a morbidly obese body habitus with large subcutaneous fat layer large musculature structure which made the approach difficult and added increased time to the surgical procedure. The patient had moderate to severe degenerative changes with periarticular osteophytes and a chronically inflamed synovial lining. Specimens Femoral head and bone and cartilage fragments Complications none Indications patient is a morbidly obese 63-year-old male with a history of arthritis of the weightbearing lower extremities. He previously had successful left total knee replacement. He now presents with severe arthritis of the right hip for elective hip replacement. Components used: [employer] a fit system: Acetabulum size 54 with 25 mm dome screw and 36 mm highly cross-linked polyethylene liner. femur size 10 standard offset with plus a 36 mm Oxinium head. Note: This patient morbidly obese body habitus added increased surgical time and difficulty to the procedure. Note: Russell BRAY was present and assisted throughout due to the complicated nature of this case. He help with preparation and set up an patient assistant throughout. He assisted with hemostasis and exposure throughout the procedure. He also closed the fascial subcutaneous and skin layers and dry applied the postop dressing. Description of Procedure Following satisfactory spinal anesthesia the patient was supine on the operating room table. The right leg was placed in the traction device in the left leg in the well-leg diaz. Positioning was confirmed with fluoroscopy. The leg was prepared with ChloraPrep and draped sterilely. A surgical timeout was performed. An anterior approach was performed deepened through a very large subcutaneous fat layer. The interval between the sartorius and tensor muscles was then opened and identified. The circumflex femoral vessels were identified and coagulated. An anterior capsulotomy was performed exposing the arthritic femoral neck and head. Fluoroscopy was used to confirm femoral neck resection level which was completed and the arthritic femoral head was removed. The acetabular self-retaining retractor was placed. Acetabular preparation was completed with excision of labral and calcified labral tissue. The acetabulum was then reamed under direct vision. A 54 shell was impacted into a healthy bed in a position of 35 to 40 degrees of abduction and 25 degrees of anteversion confirmed with fluoroscopy. A dome screw was placed followed by the polyethylene liner. A small inferior osteophyte was removed. Local anesthetic was placed and the wound was irrigated. The femur was placed into a position of external rotation extension and adduction. Exposure again was difficult because of the large body habitus. Femoral canal was identified and was prepared up to a size 10. A trial reduction with a standard offset neck and a +8 head trial was performed. Fluoroscopy showed good fit and fill of the proximal canal, very good orientation of the components, and congregation of leg length and offset at the level of the lesser trochanter. The hip was dislocated. The trial components removed. Local anesthetic was placed. After irrigation the final stem head complex of the same size was placed in the wound was irrigated with experience irrigation and the hip reduced. Fluoroscopy showed similar findings. There was very little bleeding. Following ear irrigation with 500 cc of experience irrigation the tensor fascia was closed with a running suture of 0 strata fix. The subcutaneous layers were then closed with in layers with 0 strata fix. The skin was closed with a running subcuticular stitch of 3 oh strata fix. Dermabond Steri-Strips and a negative pressure dressing were applied. The patient was returned to his bed in stable condition. I attest to the content of the Intraoperative Record and any orders documented therein. Any exceptions are noted below.
[2023-07-20] MEDS ORDERED: POLYETHYLENE (MIRALAX) 17 GM PACK PO PRN (14:49)
[2023-07-20] MEDS: SODIUM CHLORIDE 0.9% 1,000 ML IV SCH (14:55)
[2023-07-20] MEDS: ACETAMINOPHEN 500 MG TAB PO SCH ×2 (17:02→22:37)
[2023-07-20] MEDS: ceFAZolin 2000MG 2,000 MG/15 ML SYR IV SCH (18:16)
[2023-07-20] MEDS: ASCORBIC ACID 500 MG TAB PO SCH (18:16)
[2023-07-20] MEDS ORDERED: TRANEXAMIC ACID / 0.7% NACL 1,000 MG/100 ML BAG IV SCH (18:30)
[2023-07-20] MEDS: traMADol HCL 50 MG TABLET PO PRN (20:49)
[2023-07-20] MEDS: ASPIRIN 81 MG ECTAB PO SCH (20:50)
[2023-07-20] MEDS: CeleBREX 200 MG CAP PO SCH (20:51)
[2023-07-20] MEDS: DOCUSATE SODIUM 100 MG CAP PO SCH (20:51)
[2023-07-20] MEDS ORDERED: SENNA 8.6 MG TAB PO SCH (21:00)
[2023-07-21] MEDS: SODIUM CHLORIDE 0.9% 1,000 ML IV SCH (02:00)
[2023-07-21] MEDS: ceFAZolin 2000MG 2,000 MG/15 ML SYR IV SCH (02:34)
[2023-07-21] MEDS: traMADol HCL 50 MG TABLET PO PRN (02:35)
[2023-07-21] MEDS: ACETAMINOPHEN 500 MG TAB PO SCH (06:03)
[2023-07-21 06:16] LABS: Basophils # (auto) 0.02 K/uL (0.00-0.20); Basophils % (auto) 0.1 %; Eosinophils # (auto) 0.01 K/uL (0.00-0.50); Eosinophils % (auto) 0.1 %; Hematocrit (blood only) 33.8 % (42.0-52.0); Hemoglobin 11.2 g/dl (14.0-18.0); Immature Granulocytes # (auto) 0.14 K/uL (0.01-0.20); Immature Granulocytes % (auto) 0.9 %; Lymphocytes # (auto) 1.48 K/uL (1.20-3.40); Lymphocytes % (auto) 9.3 %; Mean Corpuscular Hemoglobin 28.1 pg (25.0-34.0); Mean Corpuscular Hgb Conc 33.1 g/dL (32.0-36.0); Mean Corpuscular Volume 84.9 fL (80.0-100.0); Mean Platelet Volume 11.1 fL (9.4-12.4); Monocytes # (auto) 0.96 K/uL (0.11-0.59); Neutrophils # (auto) 13.27 K/uL (1.40-6.50); Neutrophils % (auto) 83.6 %; Platelet Count 216 K/uL (130-400); RDW Coefficient of Variation 12.8 % (11.5-14.5); RDW Standard Deviation 38.9 fL (36.4-46.3); Red Blood Count 3.98 M/uL (4.70-6.10); White Blood Count 15.88 K/ul (4.8-10.8)
--- NOTE | 2023-07-21 06:25 | Orthopedic Progress Note ---
Date of Service July 21, 2023 Assessment & Plan (1) Degenerative joint disease of right hip: Plan: Postop day 1 status post right total hip replacement PT/OT protocols. Weightbearing as tolerated. DVT prophylaxis-aspirin p.o. twice daily, SCDs Pain management as written. Mild leukocytosis likely secondary from surgical stress/preoperative steroids. Patient remaining asymptomatic and afebrile. DC planning-patient is planning for home health services upon discharge. Plan for discharge home today after PT. (2) Morbid obesity with BMI of 40.0-44.9, adult: (3) Status post total left knee replacement: (4) Primary osteoarthritis of left knee: Admission and Anticipated Discharge Date Admission Date: July 20, 2023 Subjective Stop day 1 Patient awake and alert. Sitting up in bed. States he has mild pain around the incision site but otherwise he is feeling well. No other complaints this morning. Physical Exam Physical Exam: Yuliya dressing is clean, dry, and intact. Functioning well. Thigh with mild swelling consistent with surgery. Calves are soft nontender. Neurovascular intact. Toes are mobile. Results & Data Vital Signs (Past 12 Hours) Vital Signs Temp Pulse Resp BP BP Pulse Ox O2 Del Method 07/21/23 04:09 36.5 C 76 16 139/76 96 Room Air 07/20/23 21:32 36.8 C 84 18 136/77 95 Room Air 07/20/23 20:50 Room Air 07/20/23 20:05 36.6 C 92 H 16 126/75 95 Room Air 07/20/23 18:25 36.8 C 86 16 132/78 95 Room Air
[2023-07-21 06:30] LABS: Calcium 8.4 mg/dl (8.6-10.3); Creatinine Clr Calc Pharmacy 134.8 ml/min; Est GFR (African American) 111.7 ml/min; Est GFR (Non-African American) 96.4 ml/min; Potassium 4.4 mmol/L (3.5-5.1)
[2023-07-21] MEDS: ASCORBIC ACID 500 MG TAB PO SCH (08:23)
[2023-07-21] MEDS: CeleBREX 200 MG CAP PO SCH (08:24)
[2023-07-21] MEDS: DOCUSATE SODIUM 100 MG CAP PO SCH (08:24)
[2023-07-21] MEDS: ASPIRIN 81 MG ECTAB PO SCH (08:24)
[2023-07-21] MEDS ORDERED: MULTIVITAMIN TAB PO SCH (09:00)
[2023-07-21] MEDS ORDERED: LISINOPRIL/HCTZ 20/25MG 1 TAB PO SCH (09:00)
[2023-07-21] MEDS ORDERED: NALTREXONE HCL 50 MG TAB PO SCH (09:00)
--- NOTE | 2023-07-24 11:06 | Discharge Summary ---
Date of Service July 24, 2023 Admission HPI Per Admitting Provider Patient is a large statured morbidly obese 63-year-old male with greater than 1 year history of right hip and groin pain. The pain is associated with decreased range of motion decreased standing and walking tolerance and giving out sensation. He rates his pain as a 7 out of 10. He has radiographic evidence of advanced arthritis of the hip with moderate acetabular dysplasia and has failed conservative management to include injections. Admission Exam Per Admitting Provider Physical Exam: General: Obese male who appears to be his stated age. HEENT: NCAT, EOMI, PERRLA Neck: Thick but no appreciated bruits Heart: Regular rate and rhythm no murmurs or gallops Lungs: Breath sounds clear and present in all saucedo Abdomen: Obese soft nontender bowel sounds positive Extremities: Right leg shows equal leg lengths to the left passive range of motion is 0 to 90 degrees flexion 0 degrees internal rotation all which reproduces groin pain. Neurological and vascular: Intact Principal Diagnosis Right Hip Djd Discharge Data Allergies Allergy/AdvReac Type Severity Reaction Status Date / Time No Known Allergies Allergy Unknown Verified 07/20/23 09:13 Procedures Performed Operation Date: 07/20/23 10:15 Actual Procedures p Right Total Hip Replacement Anterior Approach(Right) - Lex Haynes MD Ordered Studies 07/20/23 10:15 FL hip RT 1V Routine Hospital Course (1) Degenerative joint disease of right hip: Patient: BERYL CLARKE Admit Date: 07/20/23 MR#: [id number] Att Phy: Lex Haynes MD Acct ID: [id number] Thuy Phy: Beryl Bahena SPARKLE Date: 1960 Fam Phy: Age: 63 Location: 3E Sex: M Room/Bed: E305-1 cc: ~ *NOTICE TO RECEIVING LIBERTARIAN/AGENCY This information is strictly Confidential and protected under [place] law. [place] law prohibits you from making any further disclosure of this information unless further disclosure is expressly permitted by the written consent of the person to whom it pertains or is authorized by law. A general authorization for the release of medical or other information is not sufficient for this purpose. Hospital accepts no responsibility if the information is made available to any other person, INCLUDING THE PATIENT. Date of Service July 21, 2023 Assessment & Plan (1) Degenerative joint disease of right hip: Plan: Postop day 1 status post right total hip replacement PT/OT protocols. Weightbearing as tolerated. DVT prophylaxis-aspirin p.o. twice daily, SCDs Pain management as written. Mild leukocytosis likely secondary from surgical stress/preoperative steroids. Patient remaining asymptomatic and afebrile. DC planning-patient is planning for home health services upon discharge. Plan for discharge home today after PT. (2) Morbid obesity with BMI of 40.0-44.9, adult: (3) Status post total left knee replacement: (4) Primary osteoarthritis of left knee: Admission and Anticipated Discharge Date Admission Date: July 20, 2023 Subjective Stop day 1 Patient awake and alert. Sitting up in bed. States he has mild pain around the incision site but otherwise he is feeling well. No other complaints this morning. Physical Exam Physical Exam: Lebron dressing is clean, dry, and intact. Functioning well. Thigh with mild swelling consistent with surgery. Calves are soft nontender. Neurovascular intact. Toes are mobile. Results & Data Vital Signs (Past 12 Hours) Vital Signs Temp Pulse Resp BP BP Pulse Ox O2 Del Method 07/21/23 04:09 36.5 C 76 16 139/76 96 Room Air 07/20/23 21:32 36.8 C 84 18 136/77 95 Room Air 07/20/23 20:50 Room Air 07/20/23 20:05 36.6 C 92 H 16 126/75 95 Room Air 07/20/23 18:25 36.8 C 86 16 132/78 95 Room Air Signed By: <Electronically signed by Lex Haynes MD> 07/24/23 0655 <Electronically signed by Russell Sandoval PA-C> 07/21/23 0626 Created: 07/21/23 0622 (2) Morbid obesity with BMI of 40.0-44.9, adult: (3) Status post total left knee replacement: (4) Primary osteoarthritis of left knee: Total Time Total Time Spent Total Time Spent (In Minutes): 5 Discharge Plan Discharge Items Patient Disposition: Home - Home Health Services Reason For Visit: Right Hip Osteoarthritis Discharge Diagnosis: Right Hip Osteoarthritis Activity: Per Instructions section Weightbearing: Right weightbearing Weightbearing Comment: as tolerated Non-emergency contact: Surgeon Call non-emergency contact if: you have any medication questions, your pain is not controlled, your temperature is above 101.5, your wound has increased redness and your wound has increased drainage Follow-up/Referrals: Lex Haynes MD [Surgeon] - (Follow up with Dr Haynes or his PA in 2 weeks from the day of your surgery for your first post operative visit) Beryl Bahena PA-C [Primary Care Provider] - Diet: Regular Addtl Attending Provider Instructions: DR. MATTHEW POST-OP INSTRUCTIONS FOR TOTAL HIP ARTHROPLASTY PLEASE REVIEW PRIOR TO SURGERY Day of Surgery You will be admitted and meet the nursing and anesthesia team. Dr. Haynes will see you and sign your operative side. Anesthesia will place your spinal anesthetic in the pre-op area Your surgery will be performed and last approximately 1 2 hours. Upon waking, you will notice a dressing and ice pack on your hip. You will remain in the recovery room for 1 2 hours, then be transferred to your room in the ambulatory surgical area if you are to go home the same day as your surgery or transferred to the orthopedic floor if you will be staying overnight. Most of Dr. Matthew total hip patients go home the same day as surgery. This depends on how well you feel. Patients generally seem to feel better in their own home environment, and the risk of exposure to bad bugs is much lower. (Your post-operative medications will be sent to your pharmacy approximately 1-2 days prior to your procedure) Day 1 post-op (if you have an overnight stay in the hospital) You will have bloodwork drawn in the morning Physical therapy will evaluate you in the morning. You will start getting out of bed and ambulating with a walker. They will instruct you on hip motion exercises. Use your cold packs as instructed. This will decrease swelling and minimize pain. access services representative will discuss your discharge plan. Discharge will generally be around 11am Day 1 post-op (all patients) You will be taking Aspirin 81mg twice for 4 weeks to decrease the risk of a blood clot. You will most likely have a drain and a LEBRON (superficial wound VAC) dressing post-operatively. This will keep your incision dry as well as aid in early healing. The batteries will wear out and the VAC will lose suction around day 6 - 7 post-op. At that time, you may turn off the device and disconnect from the dressing. You must keep the dressing on until your first post- operative visit with Dr. Haynes. If the dressing appears to be saturated, please call our office. Day 2 14 post-op You will have a home nurse visit to assess your status and remove your drain on post-op day 2. You are permitted to shower immediately with the VAC. Do not soak the dressing let the shower flow on your opposite side, and pat dry the plastic. Once the dressing has been removed, you may shower normally with the incision exposed. Do not rub the area simply let soapy water run over the incision and lightly pat dry. Therapy will begin on post-op day 3. Your therapy prescription will be sent to your home therapy company/therapist You should continue doing your home exercises Week 2 post-op and forward You will have your first post-op appointment 2 weeks after surgery which should have been scheduled for you by our office. This appointment will be to check your incision, progression of therapy and pain control. Xrays will be taken to evaluate the prosthesis. You will continue to use a cane or a walker until you feel safe enough to stop using it. You will have a 6-week post-op appointment which should have been scheduled for you by our office. Xrays will be taken to evaluate the prosthesis. You will continue to advance range of motion. By 3 to 4 months after surgery, you should have almost full range of motion and may resume most activities. You may have some pain around the hip with certain activities this is completely normal. You will be scheduled for a 1 year post-op appointment to assess your outcome (sooner if Dr. Haynes feels necessary). Pain: The immediate post-op period after hip replacement surgery can be painful. However, the degree and frequency of the pain is generally much less than knee replacement surgery. You should take your pain medicine as you need it, especially prior to physical therapy and bedtime. Your pain will decrease and you may transition to a milder pain medicine (with less side effects, such as Tylenol) as soon as possible. It is common to have pain at night that interferes with sleep this can last for several months. Pain medicines can cause nausea and constipation do not take more than you need. You may be prescribed one or more of the following medications: 1. Celebrex this controls inflammation and makes pain medications mor effective it will be taken once or twice a day 2. Tylenol a pain medicine that can help to decrease your pain you should take 1000mg three times a day 3. Tramadol a pain medicine that can be taken every 4-6 hours (instead of Oxycodone) as needed to control your pain 4. Oxycodone a VERY strong pain medicine that can be taken every 4-6 hours (instead of Tramadol) as needed to control your pain. This medication has the most side effects and is usually not necessary for hip replacements. 5. Aspirin 81mg blood thinning medication to help minimize the risk of development of blood clots unfortunate side effects of pain medicine include nausea and constipation if you experience these issues or have any questions about your post-op medications, call [facility] at for assistance/advice on how to manage these issues Hip replacement surgery does not require a lot of aggressive physical therapy. Learning to walk safely and obeying hip precautions are most important. While in the hospital, you will be shown a series of home exercises you should perform these exercises 3 4 times daily in addition to physical therapy. After the completion of home therapy (approx.. 2 weeks), most therapy exercises can be done on your own. You should walk several times a day. Try not to be standing for more than an hour at a time during the first 4 weeks post-op as you may experience more swelling. If you develop swelling, you need to elevate your legs/feet at or above the level of your heart. You may progress from a walker to a cane to walking independently as you feel comfortable. Unless it is an emergency, YOUR ARE NOT PERMITTED TO HAVE ANY DENTAL CLEANING/WORK UNTIL 3 MONTHS AFTER SURGERY. You will be required to take an antibiotic prior to any dental cleaning or dental work in order to prevent your joint prothesis from getting infected. This medication is a one time per visit dose to be taken one hour prior to appointment. You may call our office for this prescription or your dentist may be willing to prescribe the medication. Remember to contact [facility] at if you develop any signs of infection which include increased swelling, pain, redness, drainage from incision, warmth, fever, chills or severe pain unrelieved by pain medication. If you develop any chest pain or shortness of breath, you should proceed immediately to the nearest Emergency Room. It is normal to run a low-grade fever after surgery. If your fever is consistent at 101.0 or higher, you will need to contact the office. Stand-Alone Forms: [facility], Smoking Cessation Medications and DC Order Prescriptions: Continued multivitamin Tablet 1 tab PO QAM ascorbic acid (vitamin C) [Vitamin C] 500 mg Tablet 1,000 mg PO QAM vitamin B complex Tablet 1 tab PO QAM lisinopril-hydrochlorothiazide 20-25 mg tablet 1 tab PO QAM polyethylene glycol 3350 [Miralax] 17 gram powder in packet 17 g PO DAILY PRN (Reason: constipation) Qty: 5 0RF Patient Comments: no longer taking 06/19/23 Discontinued cefadroxil 500 mg capsule 500 mg PO BID Qty: 14 0RF Patient Comments: no longer taking 06/19/23 meloxicam 15 mg Tablet 15 mg PO DAILY PRN (Reason: Pain) naltrexone 50 mg Tablet 25 mg PO QAM Admission Data Admit Date/Time: 07/20/23 12:25 Attending Provider: Lex Haynes Admit Provider: Lex Haynes Primary Care Provider: Beryl Bahena Other Providers: [facility],Home Health Other Interventions: Discharge Summary Assessment (RN) Last Done: 07/21/23 09:33
== END 2023-07-21 11:00 | disposition home health service (06) ==
LOC: ASU 08:38 → PACUINP 08:38 → 3E 16:53